=== PATIENT | male | born 1935 | race Caucasian/White ===

== ENCOUNTER → 2020-02-03 14:39 | Outpatient (BNVA) | payer MEDICARE, SELFPAY | PROVIDERS: PCP Family Medicine; Referring Provider Family Medicine; Visit Provider Internal Medicine | DX: I48.0 Paroxysmal atrial fibrillation (principal); I34.0 Nonrheumatic mitral (valve) insufficiency; I34.1 Nonrheumatic mitral (valve) prolapse; I44.0 Atrioventricular block, first degree; Z79.899 Other long term (current) drug therapy | CPT/HCPCS: 99214 ==

== ENCOUNTER 2020-08-03 10:04 | Outpatient (REF) | payer MEDICARE, SELFPAY ==
[2020-08-03 15:00] LABS: Alanine Aminotransferase 12 U/L (0-40); Albumin Level 4.1 g/dL (3.5-5.0); Alkaline Phosphatase 78 U/L (39-117); Anion Gap 17 (12-20); Aspartate Amino Transferase 18 U/L (5-37); Bilirubin Total 1.2 mg/dL (0.0-1.0); Blood Urea Nitrogen 24 mg/dL (9-16); Carbon Dioxide 25 mmol/L (22-29); Chloride 104 mmol/L (96-108); Cholesterol 187 mg/dL; Estimated Glomerular Filt Rate 56; Glucose Fasting 90 mg/dL (60-99); HDL Cholesterol 48 mg/dL; LDL Cholesterol Calculated 118 mg/dl; Potassium 5.1 mmol/L (3.3-5.1); Sodium 141 mmol/L (135-145); TSH reflex Free T4 3.15 uIU/mL (0.32-4.0); Total Protein 6.9 g/dL (6.5-8.0); Triglycerides 109 mg/dL
== END 2020-08-03 10:05 | disposition home or self-care (01) ==
LOC: HO.WFDLDS 10:04
PROVIDERS: Visit Provider Family Medicine
DX: Z00.00 Encounter for general adult medical examination without abnormal findings (principal); R03.0 Elevated blood-pressure reading, without diagnosis of hypertension; I10 Essential (primary) hypertension; E78.5 Hyperlipidemia, unspecified
CPT/HCPCS: 36415; 80053; 80061; 84443

== ENCOUNTER 2020-08-17 10:25 | Outpatient (REF) | payer MEDICARE, SELFPAY ==
--- NOTE | ~2020-08-17 | XR_ITS ---
EXAMINATION: XR FEMUR, RIGHT CLINICAL INFORMATION: Right thigh pain. COMPARISON: None. TECHNIQUE: AP and lateral views of the right femur were obtained. FINDINGS: Severe right hip joint space narrowing with superior bony remodeling. Prominent subchondral sclerosis and subchondral cystic change as well as marginal osteophytes. No fracture or dislocation. No distal femoral lytic or blastic osseous lesion. Partially visualized right knee arthroplasty without evidence of hardware complication. Atherosclerotic calcifications. XR/XR femur RT 2V IMPRESSION: Severe right hip osteoarthritis.
== END 2020-08-17 10:26 | disposition home or self-care (01) ==
LOC: HO.XRAY 10:25
PROVIDERS: PCP Family Medicine; Visit Provider Family Medicine
DX: M79.651 Pain in right thigh (principal)
CPT/HCPCS: 73552

== ENCOUNTER → 2020-08-24 14:15 | Outpatient (BNVA) | payer MEDICARE, SELFPAY | PROVIDERS: PCP Family Medicine; Visit Provider Physician Assistant | DX: M79.651 Pain in right thigh (principal); M16.11 Unilateral primary osteoarthritis, right hip | CPT/HCPCS: 99202 ==

== ENCOUNTER → 2020-09-14 12:48 | Outpatient (REF) | payer MEDICARE, SELFPAY ==
--- NOTE | 2020-09-14 12:55 | CA_ITS ---
Transthoracic Echocardiogram Patient (Last, First, Middle): Collin Larsen J Gender: Male Date of : 1935 Age: 84 Procedure Date: 09/14/2020 Procedure Type: Transthoracic Echocardiogram Location: OP Height: 177.8 cm Weight: 83.92 kg BSA: 2.02 m2 Heart Rate: bpm BP: 140 / 80 mmHg Neighborhood Planner: YOHANA Referring MD: Jairon Hudson MD Order Processor: Yovanny Ferguson MD Symptoms: I34.0 - Nonrheumatic mitral (valve) insufficiency Study Quality: Technically Difficult ECG Rhythm: Sinus Conclusions: - 1. Normal LV systolic function with grade 3 diastolic dysfunction 2. Mildly dilated left atrium 3. Mild mitral regurgitation 4. Normal RV systolic pressure 5. No gross pericardial effusion Findings Left Ventricle Normal left ventricular size, thickness, and systolic function. The visually estimated ejection fraction is between 60-65%. Spectral Doppler is indicative of a restrictive filling pattern. Elevated filling pressures. Right Ventricle Normal right ventricular cavity size and systolic function. Atria The left atrium is mildly dilated. There is lipomatous hypertrophy of the interatrial septum. There is no evidence of interatrial shunt. The right atrium is likely dilated. Aortic Valve There is mild calcification of the aortic valve. There is mild thickening of the aortic valve. There is no aortic valve stenosis. There is mild aortic valve regurgitation. Mitral Valve There is moderate anterior and mild posterior mitral leaflet thickening. There is mild mitral valve regurgitation. There is no mitral valve stenosis. Pulmonic Valve The pulmonic valve was not well visualized. Tricuspid Valve Likely normal tricuspid valve structure and function. There is mild tricuspid valve regurgitation. The right ventricular systolic pressure is normal. The right ventricular systolic pressure is 31 mmHg. Normal right atrial pressure. There is no evidence of pulmonary hypertension. Great Vessels All visible segments of the aorta are normal in size. The pulmonary artery was not well visualized. Venous The inferior vena cava is normal in size and collapses greater than 50% with inspiration. Pericardium/Pleural There is no evidence of pericardial effusion. Prior Study Comparison Changes noted compared to prior study dated: 06/24/2019. Mitral regurgitation appears to be mild on this study. LV diastolic dysfunction appears to be grade 3. Measurements M-Mode Liner Measurements Normals - Women/Men AOV Cusps: 1.30 1.5-2.6 cm/m2 2D Linear Measurements IVSd: 1.00 0.6-0.9/0.6-1.0 cm LVIDd: 5.33 3.9-5.3/4.2-5.9 cm LVIDd Index: 2.64 2.4-3.2/2.2-3.1 cm/m2 LVIDs: 3.69 2.0-3.6 cm LVPWd: 0.95 0.7-1.1 cm Ao Root: 3.40 2.1-3.5 cm LA Diam: 3.30 2.7-3.8/3.0-4.0 cm LAIDs Index: 1.63 1.5-2.3 cm/m2 LV Mass: 244.12 67-162/88-224 g LV Mass Index: 120.85 43-95/49-115 g/m2 LVOT Diam: 2.30 3.0+(-)1.3 cm 2D Systolic Function EF 4C: 62.40 >55% EF 2C: 47.00 >55% EF BiP: 55.20 >55% Mitral Valve MV Pk E: 1.25 MV PK A: 0.63 MV Decel Time: 107.00 E/A: 2.00 E'Lateral: 6.16 E'Medial: 4.87 E/E' Med: 25.70 E/E' Lat: 20.30 PHT: 31.00 MVA PHT: 7.10 Decel Barbour: 11.65 Aortic Valve AoV Pk Cesar: 1.35 AoV Mn Cesar: 0.96 AoV VTI: 0.33 AoV Pk Grad: 7.00 Aov Mn Grad: 4.00 ITALIA Cont.VTI: 2.64 AI Pk Cesar: 3.83 AI Barbour: 1.75 LVOT LVOT Pk Cesar: 0.84 LVOT Mn Cesar: 0.60 LVOT VTI: 0.21 LVOT Pk Grad: 3.00 LVOT Mn Grad: 2.00 LVOT Diam: 2.30 LVOT Area: 4.15 Diastolic Function MV Pk E: 1.25 MV Pk A: 0.63 E/A: 2.00 E'Medial: 4.87 E/E' Med: 25.70 E' Laterial: 6.16 E/E' Lat: 20.30 Tricuspid Valve TR Pk Cesar: 2.46 TR Pk Grad: 28.00 RA Press: 3.00 RVSP: 31.00 Great Vessels Aorta Ao Root-2D: 3.40 2.0-3.7 cm Ao Asc: 2.80 2.1-3.4 cm Ao Arch: 2.80 Pulmonary Valve PV Pk Cesar: 0.84 Peak PV Grad: 3.00 Updated in Other Vendor System with Status of Final Yovanny Ferguson MD electronically signed on 09/15/2020 4:02:15 PM with status of Final
--- NOTE | 2020-09-14 12:55 | ECG_ITS ---
Hook-up date: 2020-09-14 14:05:00 Duration: 42:32:00 Test Indications: PAF Medications: 05795 QRS complexes 388 Ventricular ectopics which represent <1 % of total QRS comp. 136 Supraventricular ectopics which represent <1 % of total QRS comp. * Paced QRS complexs which represent % of total QRS comp. VENTRICULAR ECTOPY 380 Isolated 3 Bigeminal Cycles 4 Couplets 0 Runs 0 Beats in Runs * Beats LONGEST at * BPM at :: -- * Beats FASTEST at * BPM at :: -- SUPRAVENTRICULAR ECTOPY 132 Isolated 2 Couplets 0 Runs 0 Beats in Runs * Beats LONGEST at * BPM at :: -- * Beats FASTEST at * BPM at :: -- HEART RATES 44 MIN at 15:04:39 2020-09-14 63 AVG 143 MAX at 12:01:13 2020-09-15 LONGEST RR 3.2720 secs at 15:05:41 2020-09-14 S-T LEVELS Channel 1 - 128 mm at 14:05:00 2020-09-14 - 128 mm at 14:05:00 2020-09-14 Channel 2 - 128 mm at 14:05:00 2020-09-14 - 128 mm at 14:05:00 2020-09-14 Channel 3 - 128 mm at 03:32:41 -- - 128 mm at 03:32:41 Underlying rhythm is sinus with 1st degree HB; Average rate 63/min; range 44-143/min; Tachycardia at 143/min likely sinus tachycardia, as it is regular; Second degree wenckebach type heart block ; Longest pause 3.3sec; Rare PVCs; Possible short atrial tachycardia episodes; Patient did not report any symptoms in the diary Referred By: Phong Cordero Overread By: PHONG CORDERO
== END ==
LOC: HO.CARD 12:48
PROVIDERS: Visit Provider Internal Medicine
DX: I48.0 Paroxysmal atrial fibrillation (principal); I34.0 Nonrheumatic mitral (valve) insufficiency
CPT/HCPCS: 93225; 93226; 93306

== ENCOUNTER → 2020-10-12 14:38 | Outpatient (BNVA) | payer MEDICARE, SELFPAY | PROVIDERS: PCP Family Medicine; Referring Provider Family Medicine; Visit Provider Internal Medicine | DX: I34.0 Nonrheumatic mitral (valve) insufficiency (principal); I44.30 Unspecified atrioventricular block; I48.0 Paroxysmal atrial fibrillation | CPT/HCPCS: 93005; 99212 ==

== ENCOUNTER → 2020-11-08 15:14 | Outpatient (REF) | payer MEDICARE, SELFPAY ==
--- NOTE | 2020-11-09 14:30 | ECG_ITS ---
Hook-up date: 2020-11-08 15:21:00 Duration: 46:02:00 Test Indications: atrioventicular block Medications: 59473 QRS complexes 338 Ventricular ectopics which represent <1 % of total QRS comp. 24851 Supraventricular ectopics which represent 11 % of total QRS comp. * Paced QRS complexs which represent % of total QRS comp. VENTRICULAR ECTOPY 322 Isolated 9 Bigeminal Cycles 8 Couplets 0 Runs 0 Beats in Runs * Beats LONGEST at * BPM at :: -- * Beats FASTEST at * BPM at :: -- SUPRAVENTRICULAR ECTOPY 131 Isolated 11 Couplets 55 Runs 28903 Beats in Runs 1283 Beats LONGEST at 155 BPM at 10:27:52 2020-11-09 483 Beats FASTEST at 160 BPM at 10:01:32 2020-11-09 HEART RATES 50 MIN at 02:55:37 2020-11-09 68 AVG 165 MAX at 10:53:39 2020-11-09 LONGEST RR 2.1280 secs at 08:24:20 2020-11-09 S-T LEVELS Channel 1 - 128 mm at 15:21:00 2020-11-08 - 128 mm at 15:21:00 2020-11-08 Channel 2 - 128 mm at 15:21:00 2020-11-08 - 128 mm at 15:21:00 2020-11-08 Channel 3 - 128 mm at 03:44:01 -- - 128 mm at 03:44:01 Underlying rhythm is sinus with prolonged TX; Average ventricular rate 68/min; Longest pause 2.12 sec at 08:24hrs; Narrow complex tachycardia episodes probable atrial tachycardia; cannot exclude atrial fibrillation; longest run 1283 beats at 155/min; Occasional Premature ventricular complexes ; Patient did not report any symptoms in the diary Referred By: Phong Cordero Overread By: PHONG CORDERO
== END ==
LOC: HO.CARD 15:14
PROVIDERS: PCP Family Medicine; Referring Provider Family Medicine; Visit Provider Internal Medicine
DX: I49.3 Ventricular premature depolarization (principal); R94.31 Abnormal electrocardiogram [ECG] [EKG]
CPT/HCPCS: 93226

== ENCOUNTER 2020-12-07 14:14 | Outpatient (REF) | payer MEDICARE, SELFPAY ==
[2020-12-07 15:27] LABS: Hematocrit 41.7 % (42-52); Hemoglobin 13.5 g/dl (14.0-18.0); Mean Corpuscular HGB Conc 32.4 g/dl (31.0-36.0); Mean Corpuscular Hemoglobin 31.9 pg (27.0-33.0); Mean Corpuscular Volume 98.6 fL (80-98); Mean Platelet Volume 9.6 fL (9.4-12.4); Platelet Count 284 X10*3/uL (160-400); Red Blood Count 4.23 X10*6/uL (4.60-5.80); Red Cell Distribution Width 13.2 % (11.0-16.0); White Blood Count 8.4 X10*3/uL (4.8-10.8)
[2020-12-07 15:34] LABS: Prothrombin Time 11.1 SEC (9.9-13.0)
[2020-12-07 15:47] LABS: Anion Gap 13 (12-20); Blood Urea Nitrogen 34 mg/dL (9-16); Calcium 9.3 mg/dL (8.4-10.2); Carbon Dioxide 30 mmol/L (22-29); Chloride 103 mmol/L (96-108); Estimated Glomerular Filt Rate 42; Glucose Random 96 mg/dL (60-115); Potassium 4.7 mmol/L (3.3-5.1); Sodium 141 mmol/L (135-145)
== END 2020-12-07 14:15 | disposition home or self-care (01) ==
LOC: HO.LAB 14:14
PROVIDERS: PCP Family Medicine; Referring Provider Family Medicine; Visit Provider Internal Medicine
DX: I34.0 Nonrheumatic mitral (valve) insufficiency (principal); I44.30 Unspecified atrioventricular block; I48.0 Paroxysmal atrial fibrillation
CPT/HCPCS: 36415; 80048; 85027; 85610; 99212

== ENCOUNTER 2021-01-25 10:59 | Outpatient (REF) | payer MEDICARE, SELFPAY ==
[2021-01-25 14:22] LABS: Anion Gap 14 (12-20); Blood Urea Nitrogen 24 mg/dL (9-16); Carbon Dioxide 28 mmol/L (22-29); Chloride 102 mmol/L (96-108); Estimated Glomerular Filt Rate 53; Glucose Random 130 mg/dL (60-115); Potassium 4.3 mmol/L (3.3-5.1); Sodium 140 mmol/L (135-145)
== END 2021-01-25 11:00 | disposition home or self-care (01) ==
LOC: HO.WFDLDS 10:59
PROVIDERS: Visit Provider Family Medicine
DX: Z00.00 Encounter for general adult medical examination without abnormal findings (principal)
CPT/HCPCS: 36415; 80048

== ENCOUNTER → 2021-06-27 11:23 | Outpatient (REF) | payer MEDICARE, SELFPAY ==
--- NOTE | 2021-06-27 11:27 | HM_ITS ---
Conclusion: 1. Patient was monitored for total period of 4 days and 2 hours 2. Baseline was normal sinus rhythm with average heart rate 66 beats per minute 3. One pause of 2.62 seconds noted on 2nd day at 10:08 post PVC 4. Frequent short runs of supraventricular ectopy noted could represent atrial fibrillation, longest episode 33 minutes and 16 seconds 5. Baseline intraventricular conduction delay noted 6. Total of 10,163 PACs noted, accounting for 2.62% total burden account for frequent PACs 7. No patient reported events MTDD
== END ==
LOC: HO.CARD 11:23
PROVIDERS: PCP Family Medicine; Visit Provider Internal Medicine
DX: I48.0 Paroxysmal atrial fibrillation (principal)
CPT/HCPCS: 93242

== ENCOUNTER → 2021-07-05 14:39 | Outpatient (BNVA) | payer MEDICARE, SELFPAY | PROVIDERS: PCP Family Medicine; Referring Provider Family Medicine; Visit Provider Nurse Practitioner Family | DX: I47.1 Supraventricular tachycardia (principal); I48.0 Paroxysmal atrial fibrillation; I44.0 Atrioventricular block, first degree; I10 Essential (primary) hypertension; I34.0 Nonrheumatic mitral (valve) insufficiency | CPT/HCPCS: 93005; 99212 ==

== ENCOUNTER → 2021-10-19 09:34 | Outpatient (BNVA) | payer MEDICARE, SELFPAY | PROVIDERS: PCP Family Medicine; Visit Provider Anesthesiology | DX: M16.11 Unilateral primary osteoarthritis, right hip (principal) | CPT/HCPCS: 99202 ==

== ENCOUNTER 2021-11-22 06:12 | Outpatient (REF) | payer MEDICARE, SELFPAY ==
--- NOTE | ~2021-11-22 | FL_ITS ---
EXAMINATION: XR FLUOROSCOPY WITH IMAGES CLINICAL INFORMATION: Right hip steroid injection. Primary osteoarthritis of the right hip COMPARISON: None. TECHNIQUE: Fluoroscopy performed by Dr. Jass Ford. Fluoroscopy time: 0.3 minutes. Cumulative Dose: 15.4 mGy. DAP: 4.2 Gy-cm2. Images: 2. FINDINGS: Radiopaque needle projects over the right hip with injection of contrast into the joint space. FL/FL guidance in treatment room IMPRESSION: Fluoroscopic guidance for right hip injection. Please refer to procedural report for further information.
== END 2021-11-22 06:13 | disposition home or self-care (01) ==
LOC: HO.RADIR 06:12
PROVIDERS: Visit Provider Anesthesiology
DX: M16.11 Unilateral primary osteoarthritis, right hip (principal)
CPT/HCPCS: 20610; J3300

== ENCOUNTER 2021-12-13 14:58 | Inpatient (IN) | payer MEDICARE, SELFPAY ==
--- NOTE | 2021-12-13 | ECG_ITS ---
Test Reason : rythmn change Blood Pressure : / mmHG Vent. Rate : 078 BPM Atrial Rate : 078 BPM P-R Int : 310 ms QRS Dur : 120 ms QT Int : 392 ms P-R-T Axes : 054 -24 054 degrees QTc Int : 446 ms Sinus rhythm with 1st degree A-V block Possible Anterior infarct (cited on or before 13-DEC-2021) Abnormal ECG When compared with ECG of 13-DEC-2021 15:24, Vent. rate has decreased BY 61 BPM Referred By: Guille Mckeon Electronically Signed By:ANIBAL RUSSELL
--- NOTE | ~2021-12-13 | FL_ITS ---
EXAMINATION: XR FLUOROSCOPY WITH IMAGES CLINICAL INFORMATION: Pacemaker placement COMPARISON: Previous chest x-ray 12/13/2021 TECHNIQUE: Fluoroscopy performed by Demi. Fluoroscopy time: 6.6 minutes. Cumulative Dose: 84 mGy. DAP: 23 Gy-cm2. Images: 3. FINDINGS: Initial left chest venogram demonstrates patent left subclavian and innominate veins. Subsequent images demonstrate a dual-chamber pacemaker in satisfactory position. FL/FL guidance in OR IMPRESSION: Fluoroscopy guidance for dual chamber pacemaker placement.
--- NOTE | ~2021-12-13 | XR_ITS ---
EXAMINATION: XR CHEST CLINICAL INFORMATION: Pacemaker placement COMPARISON: 12/13/2021 TECHNIQUE: Frontal view of the chest was obtained. FINDINGS: Since the prior study, a left chest wall dual-lead pacemaker has been placed with one tip in the right atria the other near the right ventricular apex. No pneumothorax is seen. Heart size normal and the lungs are clear. Severe degenerative changes and rotator cuff disease noted in the right shoulder with mild changes on the left. XR/XR chest 1V IMPRESSION: Normal appearance of new left chest wall pacemaker without complication
--- NOTE | ~2021-12-13 | XR_ITS ---
EXAMINATION: XR CHEST CLINICAL INFORMATION: Follow-up pacer leads COMPARISON: X-ray 12/15/2021 TECHNIQUE: 2 Frontal view of the chest was obtained. FINDINGS: Left chest wall dual-lead pacemaker redemonstrated, with one pacer lead projected over the right atrium, and the second lead projected over the right ventricle. Cardiac monitoring leads overlie the chest. Stable cardiomediastinal silhouette. Aortic arch calcification. No pulmonary edema or focal consolidation. No pneumothorax is seen. XR/XR chest 1V IMPRESSION: Dual-lead pacemaker, with lead positioning as described above. No pneumothorax.
--- NOTE | ~2021-12-13 | XR_ITS ---
EXAMINATION: XR CHEST CLINICAL INFORMATION: Arrhythmia COMPARISON: None TECHNIQUE: Frontal view of the chest was obtained. FINDINGS: Suboptimal lordotic view. There is a airspace opacity in the left upper lung overlying the scapula which may be exaggerated due to portable lordotic technique. I would recommend repeating the study as a nonlordotic well centered PA and lateral film. Heart and pulmonary vessels are normal. No evidence for congestive failure. There is degenerative change in the left shoulder. XR/XR chest 1V IMPRESSION: No congestive change. Query left upper lobe airspace opacity versus an appearance based on lordotic technique. Please repeat the examination as a well centered upright nonlordotic PA and lateral.
--- NOTE | 2021-12-13 15:26 | ECG_ITS ---
Test Reason : PALPITATIONS Blood Pressure : / mmHG Vent. Rate : 139 BPM Atrial Rate : 000 BPM P-R Int : 000 ms QRS Dur : 110 ms QT Int : 328 ms P-R-T Axes : 000 -15 073 degrees QTc Int : 499 ms Supraventricular tachycardia Anterior infarct , age undetermined Abnormal ECG No previous ECGs available Referred By: Generic ED Physician Electronically Signed By:ANIBAL RUSSELL
[2021-12-13 15:27] VITALS: BP 97/59; PULSE 135; RESP 19; TEMP 36.7; O2SAT 95; BMI 27.2
[2021-12-13 15:46] LABS: MANUAL DIFF FLAG NO
[2021-12-13 15:50] LABS: Basophils Absolute Auto 0.1 X10*3/uL (0.0-0.2); Basophils Percent Auto 0.8 % (0-2); Eosinophils Absolute Auto 0.2 X10*3/uL (0.0-0.4); Hemoglobin 13.3 g/dl (14.0-18.0); Imm Gran Abs Auto 0.02 X10*3/uL (0.00-0.03); Imm Gran Pct Auto 0.3 % (0.0-0.4); Mean Corpuscular HGB Conc 33.3 g/dl (31.0-36.0); Mean Corpuscular Hemoglobin 32.4 pg (27.0-33.0); Mean Corpuscular Volume 97.3 fL (80.0-98.0); Mean Platelet Volume 9.4 fL (9.4-12.4); Monocytes Absolute Auto 0.5 X10*3/uL (0.1-1.2); Monocytes Percent Auto 6.8 % (2-11); Neutrophils Absolute Auto 6.1 x10*3/uL (2.0-8.3); Neutrophils Percent Auto 77.1 % (45-73); Platelet Count 236 X10*3/uL (160-400); Red Blood Count 4.11 X10*6/uL (4.60-5.80); White Blood Count 7.9 X10*3/uL (4.8-10.8)
[2021-12-13 16:01] LABS: Anion Gap 16 (12-20); Blood Urea Nitrogen 25 mg/dL (9-16); Calcium 8.7 mg/dL (8.4-10.2); Carbon Dioxide 27 mmol/L (22-29); Chloride 101 mmol/L (96-108); Creatinine Clr Calc Pharmacy 42.3; Estimated Glomerular Filt Rate 54; Glucose Random 103 mg/dL (60-115); Potassium 4.6 mmol/L (3.3-5.1); Sodium 139 mmol/L (135-145)
--- NOTE | 2021-12-13 16:01 | ED_ITS ---
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 Per patient's daughter patient used to be on beta-seb before which was stopped as his heart rate dropped to 30s plan to place a pacemaker on arrival monitor and storage bin tender showing heart rate of 70s intermittently going to 130s lasting only for few minutes patient is symptomatic no shortness of breath no leg swelling Related Data Home Medications Medication Instructions Recorded Confirmed cyanocobalamin (vitamin B-12) 1,000 mcg PO DAILY 02/03/20 12/13/21 1,000 mcg capsule diclofenac sodium 1 % topical gel 4 g topical BID PRN pain 12/13/21 12/13/21 (Voltaren Arthritis Pain) Previous Rx's Medication Instructions Recorded apixaban 2.5 mg tablet (Eliquis) 2.5 mg PO BID 90 days #180 tabs 03/28/21 tamsulosin 0.4 mg capsule 0.4 mg PO DAILY #90 caps 07/25/21 citalopram 20 mg tablet (Celexa) 20 mg PO DAILY 90 days #90 tabs 09/29/21 hydrochlorothiazide 25 mg tablet 25 mg PO DAILY 30 days #30 tabs 09/29/21 Allergies Allergy/AdvReac Type Severity Reaction Status Date / Time No Known Allergies Allergy Verified 12/13/21 15:27 Review of Systems Review of Systems: Yes all other systems are reviewed and are negative [facility] Past Medical History Medical History Essential hypertension First degree heart block Hyperlipidemia Non-rheumatic mitral regurgitation PAF (paroxysmal atrial fibrillation) Surgical History History of total knee replacement Family History Family History Father No problems noted. Mother No problems noted. Social History Social History Housing: Assisted Living Facility Alcohol intake: current Alcohol intake frequency: a few times a month Patient Tobacco Use Status: Former Tobacco user e-Cigarette/Vaping Use: Never Used Second Hand Smoke Exposure: No Use of substances other than those prescribed or required for medical reasons: No Advance Directives: Yes Advance Directives Information Provided: No Advance Directives on File: No service: Yes Current occupational status: retired Current occupation: rt hand /retired Cognitive needs: Yes (walker/cane) Hearing needs: No Vision needs: Yes (glasses) Physical Exam Vital Signs: Vital Signs: Last Vital Signs Temp 98.0 F 12/13/21 15:27 Pulse 57 12/13/21 18:16 Resp 16 12/13/21 18:16 BP 110/57 L 12/13/21 18:16 Pulse Ox 97 12/13/21 18:16 O2 Del Method 12/13/21 18:16 BMI result Body Mass Index 27.2 Appearance: Alert. Oriented X3. No acute distress. Eyes: PERRLA, No Nystagmus ENT: Pharynx normal. Oral Mucosa moist Neck: Normal inspection. Neck supple. CVS: Normal heart rate and rhythm. Pulses normal. Respiratory: No respiratory distress. Equal air entry bilateral, no wheezing/rales/rhonchi Abdomen: Soft and nontender. Bowel sounds are present, no mass palpable, no CVA tenderness Skin: Skin warm and dry. Normal skin color. Normal skin turgor. Extremities: No lower extremity edema. No calf tenderness Neuro: Oriented X 3. No motor deficit. No sensory deficit.No cerebellar signs , cranial nerves II-XII intact MDM - Arrhythmia/Palpitations MDM Narrative Medical decision making narrative: Patient with paroxysmal AFib with increased ventricular rate up to 140 patient is symptomatic although. Case discussed with Dr. Hudson patient's bioprocessing manufacturing technician advised to start patient on amiodarone and low-dose beta-seb will see him will review in a.m. for future management including the pacemaker Lab Data Attestation: I reviewed the patient's lab results. Result diagrams: 12/13/21 15:40 12/13/21 15:40 Labs: Lab Results 12/13/21 12/13/21 12/13/21 Range/Units 15:40 15:40 15:40 WBC 7.9 (4.8-10.8) X10*3/uL RBC 4.11 L (4.60-5.80) X10*6/uL Hgb 13.3 L (14.0-18.0) g/dl Hct 40.0 L (42.0-52.0) % MCV 97.3 (80.0-98.0) fL MCH 32.4 (27.0-33.0) pg MCHC 33.3 (31.0-36.0) g/dl RDW 13.0 (11.0-16.0) % Plt Count 236 (160-400) X10*3/uL MPV 9.4 (9.4-12.4) fL Immature Gran % (Auto) 0.3 (0.0-0.4) % Neut % (Auto) 77.1 H (45-73) % Lymph % (Auto) 13.0 L (20-40) % Wright % (Auto) 6.8 (2-11) % Eos % (Auto) 2.0 (0-4) % Baso % (Auto) 0.8 (0-2) % Lymph # (Auto) 1.0 L (1.2-4.9) X10*3/uL Wright # (Auto) 0.5 (0.1-1.2) X10*3/uL Eos # (Auto) 0.2 (0.0-0.4) X10*3/uL Baso # (Auto) 0.1 (0.0-0.2) X10*3/uL Abs Immat Gran (auto) 0.02 (0.00-0.03) X10*3/uL Absolute Neuts (auto) 6.1 (2.0-8.3) x10*3/uL Absolute Nucleated RBC 0.000 (0.0-0.012) X10*3/uL Nucleated RBC % (auto) 0.0 (0.0-0.2) /100WBC PT (10.0-13.1) SEC INR (0.9-1.1) Sodium 139 (135-145) mmol/L Potassium 4.6 (3.3-5.1) mmol/L Chloride 101 (96-108) mmol/L Carbon Dioxide 27 (22-29) mmol/L Anion Gap 16 (12-20) BUN 25 H (9-16) mg/dL Creatinine 1.27 (0.5-1.4) mg/dL Estim Creat Clear Calc 42.3 Estimated GFR 54 Random Glucose 103 (60-115) mg/dL Calcium 8.7 (8.4-10.2) mg/dL Magnesium 2.2 (1.6-2.6) mg/dL Troponin I High Sens 10.0 (<3.5-35.0) ng/L 12/13/21 Range/Units 16:01 WBC (4.8-10.8) X10*3/uL RBC (4.60-5.80) X10*6/uL Hgb (14.0-18.0) g/dl Hct (42.0-52.0) % MCV (80.0-98.0) fL MCH (27.0-33.0) pg MCHC (31.0-36.0) g/dl RDW (11.0-16.0) % Plt Count (160-400) X10*3/uL MPV (9.4-12.4) fL Immature Gran % (Auto) (0.0-0.4) % Neut % (Auto) (45-73) % Lymph % (Auto) (20-40) % Wright % (Auto) (2-11) % Eos % (Auto) (0-4) % Baso % (Auto) (0-2) % Lymph # (Auto) (1.2-4.9) X10*3/uL Wright # (Auto) (0.1-1.2) X10*3/uL Eos # (Auto) (0.0-0.4) X10*3/uL Baso # (Auto) (0.0-0.2) X10*3/uL Abs Immat Gran (auto) (0.00-0.03) X10*3/uL Absolute Neuts (auto) (2.0-8.3) x10*3/uL Absolute Nucleated RBC (0.0-0.012) X10*3/uL Nucleated RBC % (auto) (0.0-0.2) /100WBC PT 12.9 (10.0-13.1) SEC INR 1.1 (0.9-1.1) Sodium (135-145) mmol/L Potassium (3.3-5.1) mmol/L Chloride (96-108) mmol/L Carbon Dioxide (22-29) mmol/L Anion Gap (12-20) BUN (9-16) mg/dL Creatinine (0.5-1.4) mg/dL Estim Creat Clear Calc Estimated GFR Random Glucose (60-115) mg/dL Calcium (8.4-10.2) mg/dL Magnesium (1.6-2.6) mg/dL Troponin I High Sens (<3.5-35.0) ng/L ECG Data Attestation: I personally reviewed and interpreted this ECG as follows: Interpretation: Sinus rhythm with first-degree AV block heart rate 75 beats per minute left axis deviation PACs no acute ST T wave changes no acute ischemia Discharge Plan Discharge Clinical Impression: PAF (paroxysmal atrial fibrillation) Patient Disposition: Admitted As Inpatient
[2021-12-13 16:03] VITALS: BP 124/65; PULSE 131; RESP 16; O2SAT 96
[2021-12-13 16:04] VITALS: BP 110/68; PULSE 79; RESP 14; O2SAT 96
--- NOTE | 2021-12-13 16:06 | PC.NURSE ---
pt changed into ED room 6 - HR 131, 20G IV placed in LAC - completing triage questions pt HR changed to a NSR at 79 BPM.... documentation completed and pt HR went back into 130s
[2021-12-13 16:13] LABS: INTERNATIONAL NORM RATIO 1.1 (0.9-1.1); Prothrombin Time 12.9 SEC (10.0-13.1)
--- NOTE | 2021-12-13 16:36 | ECG_ITS ---
Test Reason : at fib Blood Pressure : / mmHG Vent. Rate : 075 BPM Atrial Rate : 075 BPM P-R Int : 332 ms QRS Dur : 116 ms QT Int : 408 ms P-R-T Axes : 014 -30 063 degrees QTc Int : 455 ms Sinus rhythm with 1st degree A-V block with occasional Premature ventricular complexes and Premature atrial complexes Left axis deviation Possible Anterior infarct (cited on or before 13-DEC-2021) Abnormal ECG When compared with ECG of 13-DEC-2021 16:21, Premature ventricular complexes are now Present Premature atrial complexes are now Present Referred By: Guille Mckeon Electronically Signed By:ANIBAL RUSSELL
[2021-12-13 17:02] LABS: Magnesium 2.2 mg/dL (1.6-2.6)
[2021-12-13] MEDS: Amiodarone HCL 200 MG TABLET 400 MG PO (17:06)
[2021-12-13] MEDS: Metoprolol Tartrate 25 MG TABLET PO (17:06)
[2021-12-13 18:16] VITALS: BP 110/57; PULSE 57; RESP 16; O2SAT 97
--- NOTE | 2021-12-13 18:58 | PHA.MEDREC ---
Pharmacy Consult ? Medication Reconciliation Pharmacy has completed the medication reconciliation.
--- NOTE | 2021-12-13 19:26 | P.HPHOSP_ITS ---
History of Present Illness Date of Service: 12/13/21 Chief Complaint: Tachycardia 86-year-old male with past history of hypertension, hyperlipidemia nonrheumatic mitral regurgitation, paroxysmal AFib on Eliquis, history of bradycardia/Wenckebach heart block-off of beta-seb; presented to the hospital today with a chief complaint of tachycardia. Patient initially went to the cardiology clinic for routine follow-up visit; noted to have AFib with rapid ventricular rate; subsequently patient was sent to the hospital for further evaluation. Patient denies any symptoms-denies any chest pain palpitations lightheadedness dizziness, fever chills cough, GI symptoms. Review of all other systems is negative except mentioned above ER course: Per ER team patient asymptomatic, exam benign; discussed with cardiology who suggested to have the patient on amiodarone 400 mg b.i.d. and metoprolol told him once b.i.d.. Patient on presentation to the ER noted to be in rapid AFib with heart rate in 130s. received diltiazem IV x1. Admitted to the hospital for further management [facility] Medical History Essential hypertension First degree heart block Hyperlipidemia Non-rheumatic mitral regurgitation PAF (paroxysmal atrial fibrillation) Family History Father No problems noted. Mother No problems noted. Surgical History History of total knee replacement Social History Household Members: Caregiver and Other Housing: Assisted Living Facility Do you presently have visiting nurse or other home services: Yes Alcohol intake: current Alcohol intake frequency: a few times a month Patient Tobacco Use Status: Former Tobacco user Tobacco use type: Cigarette e-Cigarette/Vaping Use: Never Used Second Hand Smoke Exposure: No service: Yes Current occupational status: retired Current occupation: rt hand /retired Cognitive needs: Yes (walker/cane) Hearing needs: No Vision needs: Yes (glasses) Meds Allergies Allergy/AdvReac Type Severity Reaction Status Date / Time No Known Allergies Allergy Verified 12/13/21 15:27 Active Medications: Current Medications Acetaminophen (Acetaminophen 325 Mg Tablet) 650 mg PO Q6H PRN PRN Reason: Pain, Mild (Pain Scale 1-3) Apixaban (Apixaban 2.5 Mg Tablet) 2.5 mg PO BID [facility] Cyanocobalamin (Cyanocobalamin (Vitamin B-12) 1,000 Mcg Tablet) 1,000 mcg PO DAILY [facility] Hydrochlorothiazide (Hydrochlorothiazide 25 Mg Tablet) 25 mg PO DAILY [facility]; Protocol Melatonin (Melatonin 3 Mg Tablet) 6 mg PO BEDTIME PRN PRN Reason: Insomnia Non-Formulary Medication (Citalopram [Celexa]) 20 mg PO DAILY [facility] Pharmacy Consult (Consult Rx Perform Med Rec) 1 each MISCELLANE ONCE PRN PRN Reason: Consult order Senna (Sennosides 8.6 Mg Tablet) 17.2 mg PO BEDTIME PRN PRN Reason: Constipation Sodium Chloride (0.9 % Sodium Chloride Flush 3 Ml Syringe) 3 ml IVFLUSH QSHIFT [facility] Tamsulosin HCl (Tamsulosin Hcl 0.4 Mg Capsule) 0.4 mg PO DAILY [facility] Home Medications Medication Instructions Recorded Confirmed Last Taken Type cyanocobalamin (vitamin B-12) 1,000 mcg PO DAILY 02/03/20 12/13/21 12/13/21 History 1,000 mcg capsule diclofenac sodium 1 % topical gel 4 g topical BID PRN pain 12/13/21 12/13/21 Unknown History (Voltaren Arthritis Pain) Physical Exam Vital Signs and Narrative: Vital Signs: Last Vital Signs Temp 98.0 F 12/13/21 15:27 Pulse 57 12/13/21 18:16 Resp 16 12/13/21 18:16 BP 110/57 L 12/13/21 18:16 Pulse Ox 97 12/13/21 18:16 O2 Del Method 12/13/21 18:16 BMI result Body Mass Index 27.2 Gen: Appears be in no acute distress HEENT: NCAT, Moist mucosa. Pulmonary: Vesicular breath sounds, fair air entry CVS: Normal S1-S2 Abdomen: BS+, Soft, Nontender Extremities: Warm well perfused Neuro: Alert and awake. Results Labs CBC and Chem 7: 12/16/21 06:12 12/16/21 06:12 Labs: Laboratory Results - last 24 hr 12/13/21 12/13/21 12/13/21 15:40 15:40 16:01 MCV 97.3 MCH 32.4 MCHC 33.3 RDW 13.0 Plt Count 236 MPV 9.4 Immature Gran % (Auto) 0.3 Neut % (Auto) 77.1 H Lymph % (Auto) 13.0 L Walsh % (Auto) 6.8 Eos % (Auto) 2.0 Baso % (Auto) 0.8 Lymph # (Auto) 1.0 L Walsh # (Auto) 0.5 Eos # (Auto) 0.2 Baso # (Auto) 0.1 Abs Immat Gran (auto) 0.02 Absolute Neuts (auto) 6.1 Absolute Nucleated RBC 0.000 Nucleated RBC % (auto) 0.0 PT 12.9 INR 1.1 Anion Gap 16 Estim Creat Clear Calc 42.3 Estimated GFR 54 Random Glucose 103 Calcium 8.7 Magnesium 2.2 Imaging Radiologist's Impressions: Impressions Chest X-Ray 12/13/21 16:14 IMPRESSION: No congestive change. Query left upper lobe airspace opacity versus an appearance based on lordotic technique. Please repeat the examination as a well centered upright nonlordotic PA and lateral. Assessment and Plan (1) PAF (paroxysmal atrial fibrillation): Status: Acute Plan 86-year-old male with past history of hypertension, hyperlipidemia, arthritis, nonrheumatic mitral regurgitation, paroxysmal AFib on Eliquis, history of b radycardia/Wenckebach heart block-off of beta-seb; presented to the hospital today with a chief complaint of tachycardia. Noted to be in rapid AFib. Admitted for further management. Rapid AFib: Patient received diltiazem IV x1 in the ER. Per Cardiology Dr. Hudson-patient was started on amiodarone for an mg wait and metoprolol 25 mg b.i.d.. Patient will monitor on telemetry. Cardiology is considering pacemaker given history of Wenckebach heart block with sinus pauses. Continue home Eliquis History of hypertension: Continue home HCTZ History of BPH: Continue home Flomax DVT prophylaxis: Patient on Eliquis Code status: Full code Quality Stroke Does the patient have a stroke diagnosis?: No VTE Prior VTE?: No VTE Risk Level:: Medical - moderate - high VTE Device Contraindication: Treatment Not Indicated VTE Drug Contraindication: N/A - Med Ordered
[2021-12-13] MEDS: Apixaban 2.5 MG TABLET PO (21:17)
[2021-12-13 22:09] LABS: COVID-19 Test Negative (Negative); IDNOW Serial# 55D5AD1C
[2021-12-13 23:42] VITALS: BP 129/58; PULSE 58; RESP 16; TEMP 36.4; O2SAT 96
[2021-12-14 04:02] LABS: MANUAL DIFF FLAG NO
[2021-12-14 04:03] LABS: Basophils Absolute Auto 0.1 X10*3/uL (0.0-0.2); Basophils Percent Auto 0.6 % (0-2); Eosinophils Absolute Auto 0.4 X10*3/uL (0.0-0.4); Eosinophils Percent Auto 4.8 % (0-4); Hematocrit 38.4 % (42.0-52.0); Imm Gran Abs Auto 0.02 X10*3/uL (0.00-0.03); Imm Gran Pct Auto 0.2 % (0.0-0.4); Lymphocytes Absolute Auto 1.4 X10*3/uL (1.2-4.9); Lymphocytes Percent Auto 17.2 % (20-40); Mean Corpuscular HGB Conc 33.9 g/dl (31.0-36.0); Mean Corpuscular Hemoglobin 32.6 pg (27.0-33.0); Mean Corpuscular Volume 96.2 fL (80.0-98.0); Mean Platelet Volume 9.5 fL (9.4-12.4); Monocytes Absolute Auto 0.7 X10*3/uL (0.1-1.2); Monocytes Percent Auto 7.8 % (2-11); Neutrophils Absolute Auto 5.8 x10*3/uL (2.0-8.3); Neutrophils Percent Auto 69.4 % (45-73); Platelet Count 237 X10*3/uL (160-400); Red Blood Count 3.99 X10*6/uL (4.60-5.80); Red Cell Distribution Width 12.8 % (11.0-16.0); White Blood Count 8.3 X10*3/uL (4.8-10.8)
[2021-12-14 04:30] LABS: Anion Gap 13 (12-20); Blood Urea Nitrogen 21 mg/dL (9-16); Calcium 8.7 mg/dL (8.4-10.2); Carbon Dioxide 29 mmol/L (22-29); Chloride 101 mmol/L (96-108); Creatinine Clr Calc Pharmacy 52.6; Estimated Glomerular Filt Rate > 60; Glucose Random 88 mg/dL (60-115); Sodium 139 mmol/L (135-145)
[2021-12-14 05:40] VITALS: BP 124/43; PULSE 56; RESP 14; TEMP 36.4; O2SAT 95
--- NOTE | 2021-12-14 07:49 | PC.NURSE ---
report given to lolis mejia
[2021-12-14 08:00] VITALS: BP 113/46; PULSE 67; RESP 18; TEMP 38.3; O2SAT 94
--- NOTE | 2021-12-14 08:56 | PC.NURSE ---
MD notified pt heart rate decreased to 42 bpm, rhythm Afib . Per MD will hold metoprolol PO.
--- NOTE | 2021-12-14 09:39 | MHC.CM.PN ---
Addendum entered by Aria Gilbert 12/14/21 12:23: A PT eval was completed this morning. The rec is [facility]. Spoke with patient and datr re facility preferences. 1st choice was [facility]. No male bed available. 2nd choice [facility], has offered a bed. The pt/dtr have accepted the bed @ [facility]. Plan is Pacer tomorrow dc Sunday. Patient will transport via BLS. Original Note: IMM 12/14/21 Male 86 DX AFIB. He lives @ [facility]. He uses a walk to ambulate. He receives assist with ADLS at the facility. VAX x4. DP STR if he qualifies. He feels that he is weak and needs strengthening. He is also open to VNA services if needed. Dtr Melinda/HCP/RN will provide transport to home. If pt goes to [facility], BLS transport. A copy of his HCP has been requested.
--- NOTE | 2021-12-14 10:45 | PM.CNCAR ---
History of Present Illness History of Present Illness Date of Service: 12/14/21 Requesting physician: Salma Crane Chief complaint: Tachy-lu syndrome Narrative: Pleasant 86 gentleman was seen by Dr. Hudson in the office yesterday and was noted to be in narrow complex tachycardia. He was sent to the emergency department. EKG looks like supraventricular tachycardia versus atrial flutter. In the ER his he beta-seb and amiodarone. He reverted to sinus rhythm and on telemetry has been in and out of slow atrial fibrillation. His heart rates have been as low as 30s at times. His metoprolol and amiodarone has been held. He is denying any symptoms and in fact when he came to the clinic yesterday he did not have any new symptoms at that time too. In particular no chest pain or shortness of breath or dizziness as lightheadedness. No syncope in the past. [facility] Past Medical History Medical History Essential hypertension First degree heart block Hyperlipidemia Non-rheumatic mitral regurgitation PAF (paroxysmal atrial fibrillation) Family History Family History Father No problems noted. Mother No problems noted. Surgical History Surgical History History of total knee replacement Social History Social History Household Members: Caregiver and Other Housing: Assisted Living Facility Do you presently have visiting nurse or other home services: Yes Alcohol intake: current Alcohol intake frequency: a few times a month Patient Tobacco Use Status: Former Tobacco user Tobacco use type: Cigarette Smoked in Last 30 Days: No e-Cigarette/Vaping Use: Never Used Patient Interested in Nicotine Replacement: No Second Hand Smoke Exposure: No Use of substances other than those prescribed or required for medical reasons: No Have you been hit, kicked, punched, or otherwise hurt by someone within the past year? If so, by whom?: No Do you feel safe in your current relationship?: No Current Relationship Is there a partner from a previous relationship who is making you feel unsafe now?: No Are you made to feel afraid or neglected: No Advance Directives: No Advance Directives Information Provided: No Advance Directives on File: No Do you have thoughts of harming others: None Do you have a plan to hurt others: No Plan Recently lost weight without trying: No How much weight loss: Not applicable Eating poorly because of decreased appetite: No Nutrition screen score: 0 Nutrition Risks: No Nutritional Risk Poor oral hygiene: No service: Yes Current occupational status: retired Current occupation: rt hand /retired Cognitive needs: Yes (walker/cane) Hearing needs: No Vision needs: Yes (glasses) Meds Allergies Allergy/AdvReac Type Severity Reaction Status Date / Time No Known Allergies Allergy Verified 12/13/21 15:27 Active Medications: Current Medications Acetaminophen (Acetaminophen 325 Mg Tablet) 650 mg PO Q6H PRN PRN Reason: Pain, Mild (Pain Scale 1-3) Amiodarone HCl (Amiodarone Hcl 200 Mg Tablet) 400 mg PO BID [facility] Apixaban (Apixaban 2.5 Mg Tablet) 2.5 mg PO BID [facility] Last Admin: 12/13/21 21:17 Dose: 2.5 mg Cyanocobalamin (Cyanocobalamin (Vitamin B-12) 1,000 Mcg Tablet) 1,000 mcg PO DAILY [facility] Escitalopram Oxalate (Escitalopram Oxalate 10 Mg Tablet) 10 mg PO DAILY [facility] Hydrochlorothiazide (Hydrochlorothiazide 25 Mg Tablet) 25 mg PO DAILY [facility]; Protocol Melatonin (Melatonin 3 Mg Tablet) 6 mg PO BEDTIME PRN PRN Reason: Insomnia Metoprolol Tartrate (Metoprolol Tartrate 25 Mg Tablet) 25 mg PO BID [facility]; Protocol Last Admin: 12/14/21 08:56 Dose: Not Given Pharmacy Consult (Consult Rx Perform Med Rec) 1 each MISCELLANE ONCE PRN PRN Reason: Consult order Senna (Sennosides 8.6 Mg Tablet) 17.2 mg PO BEDTIME PRN PRN Reason: Constipation Sodium Chloride (0.9 % Sodium Chloride Flush 3 Ml Syringe) 3 ml IVFLUSH QSHIFT [facility] Last Admin: 12/14/21 00:07 Dose: Not Given Tamsulosin HCl (Tamsulosin Hcl 0.4 Mg Capsule) 0.4 mg PO DAILY [facility] Home Medications Medication Instructions Recorded Confirmed Last Taken Type cyanocobalamin (vitamin B-12) 1,000 mcg PO DAILY 10/10/1712/13/21 12/13/21 History 1,000 mcg capsule diclofenac sodium 1 % topical gel 4 g topical BID PRN pain 12/13/21 12/13/21 Unknown History (Voltaren Arthritis Pain) Physical Exam Vital Signs: Vital Signs: Last Vital Signs Temp 100.9 F H 12/14/21 08:00 Pulse 67 12/14/21 08:00 Resp 18 12/14/21 08:00 BP 113/46 L 12/14/21 08:00 Pulse Ox 94 12/14/21 08:00 O2 Del Method 12/14/21 08:00 BMI result Body Mass Index 27.2 GENERAL APPEARANCE: in no acute distress, pleasant. NECK: no carotid bruit, no jugular venous distention. SKIN: no suspicious lesions, warm and dry. HEART: no murmurs, regular rate and rhythm. LUNGS: clear to auscultation bilaterally. ABDOMEN: soft, nontender. EXTREMITIES: no edema. PERIPHERAL PULSES: equal. NEUROLOGIC: No gross deficits, AAO X 3 Objective Labs and Meds Result diagrams: 12/14/21 03:52 12/14/21 03:52 Lab results: Laboratory Results - last 24 hr 12/13/21 12/13/21 12/13/21 15:40 15:40 15:40 WBC 7.9 RBC 4.11 L Hgb 13.3 L Hct 40.0 L MCV 97.3 MCH 32.4 MCHC 33.3 RDW 13.0 Plt Count 236 MPV 9.4 Immature Gran % (Auto) 0.3 Neut % (Auto) 77.1 H Lymph % (Auto) 13.0 L Dewey % (Auto) 6.8 Eos % (Auto) 2.0 Baso % (Auto) 0.8 Lymph # (Auto) 1.0 L Dewey # (Auto) 0.5 Eos # (Auto) 0.2 Baso # (Auto) 0.1 Abs Immat Gran (auto) 0.02 Absolute Neuts (auto) 6.1 Absolute Nucleated RBC 0.000 Nucleated RBC % (auto) 0.0 PT INR Sodium 139 Potassium 4.6 Chloride 101 Carbon Dioxide 27 Anion Gap 16 BUN 25 H Creatinine 1.27 Estim Creat Clear Calc 42.3 Estimated GFR 54 Random Glucose 103 Calcium 8.7 Magnesium 2.2 Troponin I High Sens 10.0 COVID-19 ([facility]) COVID-19 Clin Com 12/13/21 12/13/21 12/14/21 16:01 21:48 03:52 WBC 8.3 RBC 3.99 L Hgb 13.0 L Hct 38.4 L MCV 96.2 MCH 32.6 MCHC 33.9 RDW 12.8 Plt Count 237 MPV 9.5 Immature Gran % (Auto) 0.2 Neut % (Auto) 69.4 Lymph % (Auto) 17.2 L Dewey % (Auto) 7.8 Eos % (Auto) 4.8 H Baso % (Auto) 0.6 Lymph # (Auto) 1.4 Dewey # (Auto) 0.7 Eos # (Auto) 0.4 Baso # (Auto) 0.1 Abs Immat Gran (auto) 0.02 Absolute Neuts (auto) 5.8 Absolute Nucleated RBC 0.000 Nucleated RBC % (auto) 0.0 PT 12.9 INR 1.1 Sodium Potassium Chloride Carbon Dioxide Anion Gap BUN Creatinine Estim Creat Clear Calc Estimated GFR Random Glucose Calcium Magnesium Troponin I High Sens COVID-19 ([facility]) Negative COVID-19 Clin Com See Note 12/14/21 03:52 WBC RBC Hgb Hct MCV MCH MCHC RDW Plt Count MPV Immature Gran % (Auto) Neut % (Auto) Lymph % (Auto) Dewey % (Auto) Eos % (Auto) Baso % (Auto) Lymph # (Auto) Dewey # (Auto) Eos # (Auto) Baso # (Auto) Abs Immat Gran (auto) Absolute Neuts (auto) Absolute Nucleated RBC Nucleated RBC % (auto) PT INR Sodium 139 Potassium 4.0 Chloride 101 Carbon Dioxide 29 Anion Gap 13 BUN 21 H Creatinine 1.02 Estim Creat Clear Calc 52.6 Estimated GFR > 60 Random Glucose 88 Calcium 8.7 Magnesium Troponin I High Sens COVID-19 ([facility]) COVID-19 Clin Com Imaging Radiologist's impression: Impressions Chest X-Ray 12/13/21 16:14 IMPRESSION: No congestive change. Query left upper lobe airspace opacity versus an appearance based on lordotic technique. Please repeat the examination as a well centered upright nonlordotic PA and lateral. Assessment and Plan (1) SVT (supraventricular tachycardia): Status: Acute (2) Tachy-lu syndrome: Status: Acute (3) PAF (paroxysmal atrial fibrillation): Status: Acute Plan Pleasant 86-year-old gentleman who had narrow complex regular tachycardia in the clinic yesterday and was transferred to [facility] Emergency Department. Differentials are supraventricular tachycardia versus atrial flutter. In any case he had reverted back to sinus rhythm and telemetry is showing slow atrial fibrillation alternating with sinus rhythm with prolonged AV conduction delay of 310 milliseconds. Due to bradycardic episodes his beta-seb and amiodarone have been held. I had a detailed discussion with him and his daughter about tachy-lu syndrome and the fact that he will require a pacemaker to manage him safely at home. The patient is agreeable and so is his daughter Melinda who is the healthcare proxy. We will arrange permanent pacemaker for this gentleman tomorrow. Keep him NPO. Once pacemaker has been implanted then I would start amiodarone to prevent paroxysmal atrial fibrillation and other arrhythmia. Thank you for allowing me to participate in the care of your patient. Please feel free to contact me if you have any questions. Procedures Date of Service Date of Service: 12/14/21
[2021-12-14] MEDS: Cyanocobalamin (Vitamin B-12) 1,000 MCG TABLET 1000 MCG PO (10:47)
[2021-12-14] MEDS: Tamsulosin HCL 0.4 MG CAPSULE PO (10:47)
[2021-12-14] MEDS: Apixaban 2.5 MG TABLET PO ×2 (10:48→23:00)
[2021-12-14] MEDS: Escitalopram Oxalate 10 MG TABLET PO (10:48)
[2021-12-14] MEDS: 0.9 % Sodium Chloride Flush 3 ML SYRINGE IVFLUSH ×2 (10:49→17:37)
[2021-12-14 10:56] VITALS: BMI 24.0
[2021-12-14 11:21] VITALS: BP 120/60; PULSE 61; RESP 18; TEMP 37.4; O2SAT 96
--- NOTE | 2021-12-14 11:33 | P.PNIM_ITS ---
Subjective Subjective Date of Service: 12/14/21 Interval History: the patient was seen and evaluated this morning Laying in bed, feels comfortable Heart rate is better controlled with dropped to 30s and pauses overnight, asymptomatic No reported other overnight events. Systemic review: No fever, chills or weakness No chest pain, palpitation No shortness of breath or coughing No abdominal pain, nausea or vomiting No urinary symptoms No any rash or wounds Physical Exam Vital Signs: Vital Signs: Last Vital Signs Temp 99.3 F 12/14/21 11:21 Pulse 61 12/14/21 11:21 Resp 18 12/14/21 11:21 BP 120/60 12/14/21 11:21 Pulse Ox 96 12/14/21 11:21 O2 Del Method 12/14/21 11:21 BMI result Body Mass Index 24.0 Const: Other: Constitutional : Alert, oriented, not in distress Neck : Normal inspection, Supple Cardiovascular : Irregular irregular, no JVP, no lower extremity edema Respiratory : fair bilateral air entry, no crackles, wheezes or rhonchi Gastrointestinal: soft, lax, Normal bowel sounds, Non tender Skin : Warm, Dry Neurological : Alert & oriented x3, No focal deficit , CN 2-12 within normal Objective Data Active Medications Acetaminophen (Acetaminophen 325 Mg Tablet) 650 mg PO Q6H PRN PRN Reason: Pain, Mild (Pain Scale 1-3) Amiodarone HCl (Amiodarone Hcl 200 Mg Tablet) 400 mg PO BID [facility] Last Admin: 12/14/21 10:48 Dose: Not Given Documented By: CHUCHO Non-Admin Reason: Physician Held Med Apixaban (Apixaban 2.5 Mg Tablet) 2.5 mg PO BID [facility] Last Admin: 12/14/21 10:48 Dose: 2.5 mg Documented By: CHUCHO Cyanocobalamin (Cyanocobalamin (Vitamin B-12) 1,000 Mcg Tablet) 1,000 mcg PO DAILY [facility] Last Admin: 12/14/21 10:47 Dose: 1,000 mcg Documented By: CHUCHO Escitalopram Oxalate (Escitalopram Oxalate 10 Mg Tablet) 10 mg PO DAILY [facility] Last Admin: 12/14/21 10:48 Dose: 10 mg Documented By: CHUCHO Hydrochlorothiazide (Hydrochlorothiazide 25 Mg Tablet) 25 mg PO DAILY [facility]; Protocol Last Admin: 12/14/21 10:48 Dose: Not Given Documented By: CHUCHO Non-Admin Reason: Physician Held Med Melatonin (Melatonin 3 Mg Tablet) 6 mg PO BEDTIME PRN PRN Reason: Insomnia Metoprolol Tartrate (Metoprolol Tartrate 25 Mg Tablet) 25 mg PO BID [facility]; Protocol Last Admin: 12/14/21 08:56 Dose: Not Given Documented By: CHUCHO Non-Admin Reason: HR <60 Pharmacy Consult (Consult Rx Perform Med Rec) 1 each MISCELLANE ONCE PRN PRN Reason: Consult order Senna (Sennosides 8.6 Mg Tablet) 17.2 mg PO BEDTIME PRN PRN Reason: Constipation Sodium Chloride (0.9 % Sodium Chloride Flush 3 Ml Syringe) 3 ml IVFLUSH QSHIFT [facility] Last Admin: 12/14/21 10:49 Dose: 3 ml Documented By: CHUCHO Tamsulosin HCl (Tamsulosin Hcl 0.4 Mg Capsule) 0.4 mg PO DAILY [facility] Last Admin: 12/14/21 10:47 Dose: 0.4 mg Documented By: CHUCHO Labs CBC & Chem 7: 12/14/21 03:52 12/14/21 03:52 Labs: Laboratory Results - last 24 hr 12/13/21 12/13/21 12/13/21 15:40 15:40 16:01 MCV 97.3 MCH 32.4 MCHC 33.3 RDW 13.0 Plt Count 236 MPV 9.4 Immature Gran % (Auto) 0.3 Neut % (Auto) 77.1 H Lymph % (Auto) 13.0 L Ellis % (Auto) 6.8 Eos % (Auto) 2.0 Baso % (Auto) 0.8 Lymph # (Auto) 1.0 L Ellis # (Auto) 0.5 Eos # (Auto) 0.2 Baso # (Auto) 0.1 Abs Immat Gran (auto) 0.02 Absolute Neuts (auto) 6.1 Absolute Nucleated RBC 0.000 Nucleated RBC % (auto) 0.0 PT 12.9 INR 1.1 Anion Gap 16 Estim Creat Clear Calc 42.3 Estimated GFR 54 Random Glucose 103 Calcium 8.7 Magnesium 2.2 COVID-19 ([facility]) COVID-19 Clin Com 12/13/21 12/14/21 12/14/21 21:48 03:52 03:52 MCV 96.2 MCH 32.6 MCHC 33.9 RDW 12.8 Plt Count 237 MPV 9.5 Immature Gran % (Auto) 0.2 Neut % (Auto) 69.4 Lymph % (Auto) 17.2 L Ellis % (Auto) 7.8 Eos % (Auto) 4.8 H Baso % (Auto) 0.6 Lymph # (Auto) 1.4 Ellis # (Auto) 0.7 Eos # (Auto) 0.4 Baso # (Auto) 0.1 Abs Immat Gran (auto) 0.02 Absolute Neuts (auto) 5.8 Absolute Nucleated RBC 0.000 Nucleated RBC % (auto) 0.0 PT INR Anion Gap 13 Estim Creat Clear Calc 52.6 Estimated GFR > 60 Random Glucose 88 Calcium 8.7 Magnesium COVID-19 ([facility]) Negative COVID-19 Clin Com See Note Assessment and Plan (1) PAF (paroxysmal atrial fibrillation): Status: Acute (2) Heart block atrioventricular: Status: Acute Plan An 86 years old male with PMH of HTN, HLD, arthritis, MR, paroxysmal AFib on Eliquis, bradycardia with Wenckebach heart block who presents to the hospital as referral from cardiology office for rapid AFib. Paroxysmal AFib with RVR Frequent bradycardia and pauses Responded well to treatment with beta-seb and amiodarone continue amiodarone load Hold beta-seb Cardiology input appreciated, to place permanent pacemaker tomorrow Continue Eliquis Hypertension continue hydrochlorothiazide BPH continue tamsulosin DVT PPX Eliquis The patient will need a overnight hospital stay for heart rate monitoring and placement of permanent pacemaker tomorrow to prevent possible decompensation and heart block Quality Stroke Does the patient have a stroke diagnosis?: No VTE Prior VTE?: No VTE Risk Level:: Medical - moderate - high VTE Device Contraindication: Treatment Not Indicated VTE Drug Contraindication: N/A - Med Ordered
[2021-12-14 15:15] VITALS: BP 129/63; PULSE 55; RESP 18; TEMP 37; O2SAT 96
[2021-12-14] MEDS: Amiodarone HCL 200 MG TABLET 400 MG PO (22:58)
[2021-12-14] MEDS: Metoprolol Tartrate 25 MG TABLET PO (23:00)
[2021-12-14 23:48] VITALS: PULSE 68; RESP 15
[2021-12-15] VITALS (13 sets, daily range): BP systolic 105–153; BP diastolic 45–129; PULSE 59–144; RESP 11–20; TEMP 36.1–37.6; O2SAT 94–99
[2021-12-15] MEDS: 0.9 % Sodium Chloride Flush 3 ML SYRINGE IVFLUSH ×3 (02:08→19:58)
[2021-12-15 07:23] LABS: Hematocrit 38.3 % (42.0-52.0); Mean Corpuscular HGB Conc 33.9 g/dl (31.0-36.0); Mean Corpuscular Hemoglobin 32.4 pg (27.0-33.0); Mean Corpuscular Volume 95.5 fL (80.0-98.0); Mean Platelet Volume 9.9 fL (9.4-12.4); Platelet Count 241 X10*3/uL (160-400); Red Blood Count 4.01 X10*6/uL (4.60-5.80); Red Cell Distribution Width 12.7 % (11.0-16.0); White Blood Count 7.8 X10*3/uL (4.8-10.8)
[2021-12-15 07:39] LABS: Anion Gap 15 (12-20); Blood Urea Nitrogen 21 mg/dL (9-16); Calcium 8.8 mg/dL (8.4-10.2); Carbon Dioxide 26 mmol/L (22-29); Chloride 101 mmol/L (96-108); Creatinine Clr Calc Pharmacy 49.2; Estimated Glomerular Filt Rate > 60; Glucose Random 91 mg/dL (60-115); Potassium 4.2 mmol/L (3.3-5.1); Sodium 138 mmol/L (135-145)
--- NOTE | 2021-12-15 11:28 | MHC.CM.PN ---
Addendum entered by Aria Gilbert 12/15/21 14:34: INSURANCE AUTHORIZATION HAS BEEN RECEIVED FOR STR @ [facility], FOR TOMORROW. HE WILL TRANSPORT VIA BLS. Original Note: Updated clinical info has been sent to the facility for insurance authorization. [facility] is starting auth today. Discharge is anticipated tomorrow. He will transport via BLS to [facility] for STR.
--- NOTE | 2021-12-15 13:22 | PC.NURSE ---
20g left ac prior to arrival
--- NOTE | 2021-12-15 13:24 | P.CONAN_ITS ---
[facility] Active Problems Active Problems: All Active Problems (Updated 12/14/21 @ 13:58 by Jaime Malik MD) PAF (paroxysmal atrial fibrillation) (Acute) Tachy-lu syndrome (Acute) Osteoarthritis of right hip (Acute) Falls (Acute) SVT (supraventricular tachycardia) (Acute) Heart block atrioventricular (Acute) Essential hypertension (Acute) Osteoarthritis of right hip (Acute) Right thigh pain (Acute) Bilateral leg weakness (Acute) Strain of unspecified muscles, fascia and tendons at thigh level, left thigh, initial encounter (Acute) Essential hypertension (Acute) Weakness of right lower extremity (Acute) Right thigh pain (Acute) Hyperlipidemia (Acute) PAF (paroxysmal atrial fibrillation) (Acute) First degree heart block (Acute) Non-rheumatic mitral regurgitation (Acute) Past Medical History Medical History Essential hypertension First degree heart block Hyperlipidemia Non-rheumatic mitral regurgitation PAF (paroxysmal atrial fibrillation) Family History Family History Father No problems noted. Mother No problems noted. Family history of problems with anesthesia: No Surgical History Surgical History History of total knee replacement History of Problems with Anesthesia: No Social History Social History Household Members: Caregiver and Other Housing: Assisted Living Facility Do you presently have visiting nurse or other home services: Yes Alcohol intake: current Alcohol intake frequency: a few times a month Patient Tobacco Use Status: Former Tobacco user Tobacco use type: Cigarette Smoked in Last 30 Days: No e-Cigarette/Vaping Use: Never Used Patient Interested in Nicotine Replacement: No Second Hand Smoke Exposure: No Use of substances other than those prescribed or required for medical reasons: No Currently Displaying Signs/Symptoms of Drug Intoxication Withdrawal: No Have you been hit, kicked, punched, or otherwise hurt by someone within the past year? If so, by whom?: No Do you feel safe in your current relationship?: No Current Relationship Is there a partner from a previous relationship who is making you feel unsafe now?: No Are you made to feel afraid or neglected: No Are you DNR?: No Advance Directives: No Advance Directives Information Provided: No Advance Directives on File: No Do you have thoughts of harming others: None Do you have a plan to hurt others: No Plan Recently lost weight without trying: No How much weight loss: Not applicable Eating poorly because of decreased appetite: No Nutrition screen score: 0 Nutrition Risks: No Nutritional Risk Poor oral hygiene: No service: Yes Current occupational status: retired Current occupation: rt hand /retired Cognitive needs: Yes (walker/cane) Hearing needs: No Vision needs: Yes (glasses) Meds Allergies Allergy/AdvReac Type Severity Reaction Status Date / Time No Known Allergies Allergy Verified 12/13/21 15:27 Active Medications: Current Medications Acetaminophen (Acetaminophen 325 Mg Tablet) 650 mg PO Q6H PRN PRN Reason: Pain, Mild (Pain Scale 1-3) Amiodarone HCl (Amiodarone Hcl 200 Mg Tablet) 400 mg PO BID [facility] Last Admin: 12/15/21 09:58 Dose: Not Given Apixaban (Apixaban 2.5 Mg Tablet) 2.5 mg PO BID [facility] Last Admin: 12/15/21 09:59 Dose: Not Given Cyanocobalamin (Cyanocobalamin (Vitamin B-12) 1,000 Mcg Tablet) 1,000 mcg PO DAILY [facility] Last Admin: 12/15/21 10:00 Dose: Not Given Escitalopram Oxalate (Escitalopram Oxalate 10 Mg Tablet) 10 mg PO DAILY [facility] Last Admin: 12/15/21 10:00 Dose: Not Given Hydrochlorothiazide (Hydrochlorothiazide 25 Mg Tablet) 25 mg PO DAILY [facility]; Protocol Last Admin: 12/15/21 10:00 Dose: Not Given Vancomycin HCl 1,000 mg/ (Sodium Chloride) 270 mls @ 270 mls/hr IV ONCE ONE Stop: 12/15/21 14:06 Melatonin (Melatonin 3 Mg Tablet) 6 mg PO BEDTIME PRN PRN Reason: Insomnia Metoprolol Tartrate (Metoprolol Tartrate 25 Mg Tablet) 25 mg PO BID [facility]; Protocol Last Admin: 12/15/21 10:00 Dose: Not Given Pharmacy Consult (Consult Rx Perform Med Rec) 1 each MISCELLANE ONCE PRN PRN Reason: Consult order Senna (Sennosides 8.6 Mg Tablet) 17.2 mg PO BEDTIME PRN PRN Reason: Constipation Sodium Chloride (0.9 % Sodium Chloride Flush 3 Ml Syringe) 3 ml IVFLUSH QSHIFT [facility] Last Admin: 12/15/21 09:56 Dose: 3 ml Tamsulosin HCl (Tamsulosin Hcl 0.4 Mg Capsule) 0.4 mg PO DAILY [facility] Last Admin: 12/15/21 10:00 Dose: Not Given Home Medications Medication Instructions Recorded Confirmed Last Taken Type cyanocobalamin (vitamin B-12) 1,000 mcg PO DAILY 02/03/20 12/13/21 12/13/21 History 1,000 mcg capsule diclofenac sodium 1 % topical gel 4 g topical BID PRN pain 12/13/21 12/13/21 Unknown History (Voltaren Arthritis Pain) Exam Exam Date and Time: December 15, 2021 1324 Height,Weight and Vital Signs: Height 5 ft 10 in Weight 76.2 kg Last Vital Signs Temp 97.0 F 12/15/21 13:20 Pulse 60 12/15/21 13:20 Resp 16 12/15/21 13:20 BP 153/129 H 12/15/21 13:20 Pulse Ox 96 12/15/21 13:20 O2 Del Method 12/15/21 13:20 Pertinent Lab Results Pertinent Lab Results: Laboratory Tests 12/13/21 12/13/21 12/13/21 15:40 15:40 15:40 WBC 7.9 RBC 4.11 L Hgb 13.3 L Hct 40.0 L MCV 97.3 MCH 32.4 MCHC 33.3 RDW 13.0 Plt Count 236 MPV 9.4 Immature Gran % (Auto) 0.3 Neut % (Auto) 77.1 H Lymph % (Auto) 13.0 L [place] % (Auto) 6.8 Eos % (Auto) 2.0 Baso % (Auto) 0.8 Lymph # (Auto) 1.0 L [place] # (Auto) 0.5 Eos # (Auto) 0.2 Baso # (Auto) 0.1 Abs Immat Gran (auto) 0.02 Absolute Neuts (auto) 6.1 Absolute Nucleated RBC 0.000 Nucleated RBC % (auto) 0.0 PT INR Sodium 139 Potassium 4.6 Chloride 101 Carbon Dioxide 27 Anion Gap 16 BUN 25 H Creatinine 1.27 Estim Creat Clear Calc 42.3 Estimated GFR 54 Random Glucose 103 Calcium 8.7 Magnesium 2.2 Troponin I High Sens 10.0 COVID-19 ([facility]) COVID-19 Clin Com 12/13/21 12/13/21 12/14/21 16:01 21:48 03:52 WBC 8.3 RBC 3.99 L Hgb 13.0 L Hct 38.4 L MCV 96.2 MCH 32.6 MCHC 33.9 RDW 12.8 Plt Count 237 MPV 9.5 Immature Gran % (Auto) 0.2 Neut % (Auto) 69.4 Lymph % (Auto) 17.2 L [place] % (Auto) 7.8 Eos % (Auto) 4.8 H Baso % (Auto) 0.6 Lymph # (Auto) 1.4 [place] # (Auto) 0.7 Eos # (Auto) 0.4 Baso # (Auto) 0.1 Abs Immat Gran (auto) 0.02 Absolute Neuts (auto) 5.8 Absolute Nucleated RBC 0.000 Nucleated RBC % (auto) 0.0 PT 12.9 INR 1.1 Sodium Potassium Chloride Carbon Dioxide Anion Gap BUN Creatinine Estim Creat Clear Calc Estimated GFR Random Glucose Calcium Magnesium Troponin I High Sens COVID-19 ([facility]) Negative COVID-19 Clin Com See Note 12/14/21 12/15/21 12/15/21 03:52 06:53 06:53 WBC 7.8 RBC 4.01 L Hgb 13.0 L Hct 38.3 L MCV 95.5 MCH 32.4 MCHC 33.9 RDW 12.7 Plt Count 241 MPV 9.9 Immature Gran % (Auto) Neut % (Auto) Lymph % (Auto) [place] % (Auto) Eos % (Auto) Baso % (Auto) Lymph # (Auto) [place] # (Auto) Eos # (Auto) Baso # (Auto) Abs Immat Gran (auto) Absolute Neuts (auto) Absolute Nucleated RBC 0.000 Nucleated RBC % (auto) 0.0 PT INR Sodium 139 138 Potassium 4.0 4.2 Chloride 101 101 Carbon Dioxide 29 26 Anion Gap 13 15 BUN 21 H 21 H Creatinine 1.02 1.09 Estim Creat Clear Calc 52.6 49.2 Estimated GFR > 60 > 60 Random Glucose 88 91 Calcium 8.7 8.8 Magnesium Troponin I High Sens COVID-19 ([facility]) COVID-19 Clin Com Airway Mallampati Class: II TM Dist: >3cm Neck ROM: Full Assessment and Plan Assessment Anesthesia Assessment: Anesthesia Plan Discussed and Chart Reviewed Final Anesthetic Review Family History of Problems with Anesthesia: No History of Problems with Anesthesia: No NPO: Yes Final Preanesthetic Review: Meds/Allgs Chart Reviewed, Consent Obtained/Reviewed and Anes Risks/Benef Reviewed Patient Risk: Intermediate Procedure Risk: Intermediate Anesthetic Plan Anesthetic Plan: GA Disposition: Standard PACU
[2021-12-15] MEDS: vancomycin HCL 1,000 MG in 0.9 % Sodium Chloride 250 ML 270 MG IV (13:38)
[2021-12-15] MEDS: Lactated Ringers 1,000 ML 100 ML IVCONT ×2 (13:40→19:59)
--- NOTE | 2021-12-15 14:11 | P.PNIM_ITS ---
Subjective Subjective Date of Service: 12/15/21 Interval History: the patient was seen and evaluated this morning Laying in bed, feels comfortable Heart rate is better controlled Plan for permanent pacemaker placement No reported other overnight events. Systemic review: No fever, chills or weakness No chest pain, palpitation No shortness of breath or coughing No abdominal pain, nausea or vomiting No urinary symptoms No any rash or wounds Physical Exam Vital Signs: Vital Signs: Last Vital Signs Temp 97.0 F 12/15/21 13:20 Pulse 60 12/15/21 13:20 Resp 16 12/15/21 13:20 BP 153/129 H 12/15/21 13:20 Pulse Ox 96 12/15/21 13:20 O2 Del Method 12/15/21 13:20 BMI result Body Mass Index 24.0 Const: Other: Constitutional : Alert, oriented, not in distress Neck : Normal inspection, Supple Cardiovascular : Irregular irregular, no JVP, no lower extremity edema Respiratory : fair bilateral air entry, no crackles, wheezes or rhonchi Gastrointestinal: soft, lax, Normal bowel sounds, Non tender Skin : Warm, Dry Neurological : Alert & oriented x3, No focal deficit , CN 2-12 within normal Objective Data Active Medications Acetaminophen (Acetaminophen 325 Mg Tablet) 650 mg PO Q6H PRN PRN Reason: Pain, Mild (Pain Scale 1-3) Amiodarone HCl (Amiodarone Hcl 200 Mg Tablet) 400 mg PO BID [facility] Last Admin: 12/15/21 09:58 Dose: Not Given Documented By: HORTENSIA Non-Admin Reason: NPO Apixaban (Apixaban 2.5 Mg Tablet) 2.5 mg PO BID [facility] Last Admin: 12/15/21 09:59 Dose: Not Given Documented By: HORTENSIA Non-Admin Reason: NPO Cyanocobalamin (Cyanocobalamin (Vitamin B-12) 1,000 Mcg Tablet) 1,000 mcg PO DAILY [facility] Last Admin: 12/15/21 10:00 Dose: Not Given Documented By: HORTENSIA Non-Admin Reason: NPO Escitalopram Oxalate (Escitalopram Oxalate 10 Mg Tablet) 10 mg PO DAILY [facility] Last Admin: 12/15/21 10:00 Dose: Not Given Documented By: HORTENSIA Non-Admin Reason: NPO Fentanyl (Fentanyl Citrate/Pf 100 Mcg/2 Ml Vial) 25 mcg IVPUSH Q5M PRN; Protocol PRN Reason: Pain, Moderate (Pain Scale 4-6 Hydrochlorothiazide (Hydrochlorothiazide 25 Mg Tablet) 25 mg PO DAILY [facility]; Protocol Last Admin: 12/15/21 10:00 Dose: Not Given Documented By: HORTENSIA Non-Admin Reason: NPO Lactated Ringer's (Lr) 1,000 mls @ 100 mls/hr IVCONT .Q10H [facility] Last Admin: 12/15/21 13:40 Dose: 100 mls/hr Documented By: HANY Melatonin (Melatonin 3 Mg Tablet) 6 mg PO BEDTIME PRN PRN Reason: Insomnia Metoprolol Tartrate (Metoprolol Tartrate 25 Mg Tablet) 25 mg PO BID [facility]; Protocol Last Admin: 12/15/21 10:00 Dose: Not Given Documented By: HORTENSIA Non-Admin Reason: NPO Ondansetron HCl (Ondansetron Hcl 4 Mg/2 Ml Vial) 4 mg IVPUSH ONCE PRN PRN Reason: Nausea and Vomiting Pharmacy Consult (Consult Rx Perform Med Rec) 1 each MISCELLANE ONCE PRN PRN Reason: Consult order Senna (Sennosides 8.6 Mg Tablet) 17.2 mg PO BEDTIME PRN PRN Reason: Constipation Sodium Chloride (0.9 % Sodium Chloride Flush 3 Ml Syringe) 3 ml IVFLUSH QSHIFT [facility] Last Admin: 12/15/21 09:56 Dose: 3 ml Documented By: HORTENSIA Tamsulosin HCl (Tamsulosin Hcl 0.4 Mg Capsule) 0.4 mg PO DAILY [facility] Last Admin: 12/15/21 10:00 Dose: Not Given Documented By: HORTENSIA Non-Admin Reason: NPO Labs CBC & Chem 7: 12/15/21 06:53 12/15/21 06:53 Labs: Laboratory Results - last 24 hr 12/15/21 12/15/21 06:53 06:53 MCV 95.5 MCH 32.4 MCHC 33.9 RDW 12.7 Plt Count 241 MPV 9.9 Absolute Nucleated RBC 0.000 Nucleated RBC % (auto) 0.0 Anion Gap 15 Estim Creat Clear Calc 49.2 Estimated GFR > 60 Random Glucose 91 Calcium 8.8 Assessment and Plan (1) Tachy-lu syndrome: Status: Acute (2) PAF (paroxysmal atrial fibrillation): Status: Acute Plan An 86 years old male with PMH of HTN, HLD, arthritis, MR, paroxysmal AFib on Eliquis, bradycardia with Wenckebach heart block who presents to the hospital as referral from cardiology office for rapid AFib. Paroxysmal AFib with RVR Tachy-lu syndrome Responded well to treatment with amiodarone continue amiodarone load Hold beta-seb Cardiology input appreciated, to place permanent pacemaker Plan for ppm placement today Continue Eliquis Physical deconditioning For STR replacement Hypertension continue hydrochlorothiazide BPH continue tamsulosin DVT PPX Eliquis The patient will need a overnight hospital stay for heart rate monitoring and placement of permanent pacemaker to prevent possible decompensation and heart block Quality Stroke Does the patient have a stroke diagnosis?: No VTE Prior VTE?: No VTE Risk Level:: Medical - moderate - high VTE Device Contraindication: Treatment Not Indicated VTE Drug Contraindication: N/A - Med Ordered
--- NOTE | 2021-12-15 15:29 | W.PM.CCCN ---
History of Present Illness Data of Consult Service Date: 12/15/21 Requesting physician: Jaime Malik Primary Care Provider: Mikel Hong MD [facility] Past Medical History Medical History Essential hypertension First degree heart block Hyperlipidemia Non-rheumatic mitral regurgitation PAF (paroxysmal atrial fibrillation) Family History Family History Father No problems noted. Mother No problems noted. Surgical History Surgical History History of total knee replacement Social History Social History Household Members: Caregiver and Other Housing: Assisted Living Facility Do you presently have visiting nurse or other home services: Yes Alcohol intake: current Alcohol intake frequency: a few times a month Patient Tobacco Use Status: Former Tobacco user Tobacco use type: Cigarette Smoked in Last 30 Days: No e-Cigarette/Vaping Use: Never Used Patient Interested in Nicotine Replacement: No Second Hand Smoke Exposure: No Use of substances other than those prescribed or required for medical reasons: No Currently Displaying Signs/Symptoms of Drug Intoxication Withdrawal: No Have you been hit, kicked, punched, or otherwise hurt by someone within the past year? If so, by whom?: No Do you feel safe in your current relationship?: No Current Relationship Is there a partner from a previous relationship who is making you feel unsafe now?: No Are you made to feel afraid or neglected: No Are you DNR?: No Advance Directives: No Advance Directives Information Provided: No Advance Directives on File: No Do you have thoughts of harming others: None Do you have a plan to hurt others: No Plan Recently lost weight without trying: No How much weight loss: Not applicable Eating poorly because of decreased appetite: No Nutrition screen score: 0 Nutrition Risks: No Nutritional Risk Poor oral hygiene: No service: Yes Current occupational status: retired Current occupation: rt hand /retired Cognitive needs: Yes (walker/cane) Hearing needs: No Vision needs: Yes (glasses) Meds Allergies Allergy/AdvReac Type Severity Reaction Status Date / Time No Known Allergies Allergy Verified 12/13/21 15:27 Active Medications: Current Medications Acetaminophen (Acetaminophen 325 Mg Tablet) 650 mg PO Q6H PRN PRN Reason: Pain, Mild (Pain Scale 1-3) Amiodarone HCl (Amiodarone Hcl 200 Mg Tablet) 400 mg PO BID [facility] Last Admin: 12/15/21 09:58 Dose: Not Given Apixaban (Apixaban 2.5 Mg Tablet) 2.5 mg PO BID [facility] Last Admin: 12/15/21 09:59 Dose: Not Given Cyanocobalamin (Cyanocobalamin (Vitamin B-12) 1,000 Mcg Tablet) 1,000 mcg PO DAILY [facility] Last Admin: 12/15/21 10:00 Dose: Not Given Escitalopram Oxalate (Escitalopram Oxalate 10 Mg Tablet) 10 mg PO DAILY [facility] Last Admin: 12/15/21 10:00 Dose: Not Given Fentanyl (Fentanyl Citrate/Pf 100 Mcg/2 Ml Vial) 25 mcg IVPUSH Q5M PRN; Protocol PRN Reason: Pain, Moderate (Pain Scale 4-6 Hydrochlorothiazide (Hydrochlorothiazide 25 Mg Tablet) 25 mg PO DAILY [facility]; Protocol Last Admin: 12/15/21 10:00 Dose: Not Given Lactated Ringer's (Lr) 1,000 mls @ 100 mls/hr IVCONT .Q10H [facility] Last Admin: 12/15/21 13:40 Dose: 100 mls/hr Melatonin (Melatonin 3 Mg Tablet) 6 mg PO BEDTIME PRN PRN Reason: Insomnia Metoprolol Tartrate (Metoprolol Tartrate 25 Mg Tablet) 25 mg PO BID [facility]; Protocol Last Admin: 12/15/21 10:00 Dose: Not Given Ondansetron HCl (Ondansetron Hcl 4 Mg/2 Ml Vial) 4 mg IVPUSH ONCE PRN PRN Reason: Nausea and Vomiting Pharmacy Consult (Consult Rx Perform Med Rec) 1 each MISCELLANE ONCE PRN PRN Reason: Consult order Senna (Sennosides 8.6 Mg Tablet) 17.2 mg PO BEDTIME PRN PRN Reason: Constipation Sodium Chloride (0.9 % Sodium Chloride Flush 3 Ml Syringe) 3 ml IVFLUSH QSHIFT [facility] Last Admin: 12/15/21 09:56 Dose: 3 ml Tamsulosin HCl (Tamsulosin Hcl 0.4 Mg Capsule) 0.4 mg PO DAILY [facility] Last Admin: 12/15/21 10:00 Dose: Not Given Home Medications Medication Instructions Recorded Confirmed Last Taken Type cyanocobalamin (vitamin B-12) 1,000 mcg PO DAILY 02/03/20 12/13/21 12/13/21 History 1,000 mcg capsule diclofenac sodium 1 % topical gel 4 g topical BID PRN pain 12/13/21 12/13/21 Unknown History (Voltaren Arthritis Pain) Physical Exam Vital Signs: Vital Signs: Last Vital Signs Temp 97.0 F 12/15/21 13:20 Pulse 60 12/15/21 13:20 Resp 16 12/15/21 13:20 BP 153/129 H 12/15/21 13:20 Pulse Ox 96 12/15/21 13:20 O2 Del Method 12/15/21 13:20 BMI result Body Mass Index 24.0 Results Labs CBC & Chem 7: 12/15/21 06:53 12/15/21 06:53 Labs: Short CBC 12/15/21 Range/Units 06:53 WBC 7.8 (4.8-10.8) X10*3/uL Hgb 13.0 L (14.0-18.0) g/dl Hct 38.3 L (42.0-52.0) % Plt Count 241 (160-400) X10*3/uL BMP 12/15/21 06:53 Sodium 138 Potassium 4.2 Chloride 101 Carbon Dioxide 26 BUN 21 H Creatinine 1.09 Calcium 8.8
--- NOTE | 2021-12-15 15:29 | W.PM.OPN ---
Operative Note Operative Note Date of Service: 12/15/21 Narrative: Tachycardia / bradycardia syndrome with symptomatic bradycardia due to slow atrial fibrillation rate in the 30s alternating with paroxysmal atrial flutter and atrial fibrillation with rates exceeding 150 placed a permanent dual-chamber Medtronic pacemaker on this date without complication after sterile preparation and draping utilizing fluoroscopic guidance I 1st performed subclavian venography highlighting the extra thoracic and intrathoracic subclavian venous systems demonstrating patency and then made a careful skin incision and dissected down to the level of the prepectoral fascia partially creating the pocket along that plane securing all bleeders and then gained separate entry x2 into the intrathoracic subclavian venous system passing retrograde with Seldinger technique to J tipped guidewires to the right atrium and then utilized to 7 Vietnamese introducers 1st passing a 58 cm active fixation lead to the right ventricular apex where screw was deployed well tethered 10 volts there was no phrenic irritation capture threshold 0.75 volts at impedance of 855 Ohms with sensing R-wave of 9.8 mV so that lead was sewn and tethered to the pectoral muscle in the floor of the pocket then passed an active fixation right atrial lead to clinically fluoroscopic Lashawn what appeared to be the right atrial appendage deploying the screw with excellent injury current 10 volts no phrenic irritation sensing P-wave 4.4 mV impedance 532 Ohms capture threshold 0.5 volts and that lead was sewn and tethered to the pectoral muscle in the floor of the pocket I then completed the pocket along the plane of the prepectoral fascia again securing all bleeders placed the 2 wires into the generator and they were both well tethered with no change in impedance and leads and generator were placed in the pocket and the wound was closed in 3 layers sterilely dressed patient removed the table neurologically intact without complication doing well and awaiting postoperative chest x-ray in the postanesthesia unit
[2021-12-15] MEDS: Amiodarone HCL 200 MG TABLET 400 MG PO (19:58)
[2021-12-15] MEDS: Metoprolol Tartrate 25 MG TABLET PO (19:58)
[2021-12-16 04:00] VITALS: BP 117/55; PULSE 60; RESP 16; TEMP 37.1; O2SAT 97
[2021-12-16] MEDS: Lactated Ringers 1,000 ML 100 ML IVCONT (06:03)
[2021-12-16 06:37] LABS: Hematocrit 36.9 % (42.0-52.0); Hemoglobin 12.4 g/dl (14.0-18.0); Mean Corpuscular HGB Conc 33.6 g/dl (31.0-36.0); Mean Corpuscular Hemoglobin 32.5 pg (27.0-33.0); Mean Corpuscular Volume 96.6 fL (80.0-98.0); Mean Platelet Volume 9.9 fL (9.4-12.4); Platelet Count 209 X10*3/uL (160-400); Red Blood Count 3.82 X10*6/uL (4.60-5.80); Red Cell Distribution Width 12.8 % (11.0-16.0); White Blood Count 8.2 X10*3/uL (4.8-10.8)
[2021-12-16 06:55] LABS: Anion Gap 14 (12-20); Blood Urea Nitrogen 18 mg/dL (9-16); Calcium 8.3 mg/dL (8.4-10.2); Carbon Dioxide 25 mmol/L (22-29); Chloride 102 mmol/L (96-108); Creatinine Clr Calc Pharmacy 51.1; Estimated Glomerular Filt Rate > 60; Glucose Random 99 mg/dL (60-115); Sodium 137 mmol/L (135-145)
[2021-12-16 08:00] VITALS: BP 114/54; PULSE 63; RESP 16; O2SAT 96
[2021-12-16 08:48] VITALS: BP 114/54; PULSE 63; O2SAT 96
--- NOTE | 2021-12-16 09:12 | P.PNCA_ITS ---
Subjective Subjective Date of Service: 12/16/21 Interval history: Status post permanent pacemaker yesterday. Device has not been interrogated yet. Chest x-ray is showing adequately positio nicole without any pneumothorax. Physical Exam Vital Signs: Last Vital Signs Temp 98.8 F 12/16/21 04:00 Pulse 63 12/16/21 08:48 Resp 16 12/16/21 08:00 BP 114/54 L 12/16/21 08:48 Pulse Ox 96 12/16/21 08:48 O2 Del Method 12/16/21 04:00 O2 Flow Rate 2 12/15/21 19:22 BMI result Body Mass Index 24.0 GENERAL APPEARANCE: in no acute distress, pleasant. NECK: no carotid bruit, no jugular venous distention. SKIN: no suspicious lesions, warm and dry. Left chest wall pacemaker site stable. No hematoma. HEART: no murmurs, regular rate and rhythm. LUNGS: clear to auscultation bilaterally. ABDOMEN: soft, nontender. EXTREMITIES: no edema. PERIPHERAL PULSES: equal. NEUROLOGIC: No gross deficits, AAO X 3 Objective Labs and Meds Result diagrams: 12/16/21 06:12 12/16/21 06:12 Lab results: Laboratory Results - last 24 hr 12/16/21 12/16/21 06:12 06:12 WBC 8.2 RBC 3.82 L Hgb 12.4 L Hct 36.9 L MCV 96.6 MCH 32.5 MCHC 33.6 RDW 12.8 Plt Count 209 MPV 9.9 Absolute Nucleated RBC 0.000 Nucleated RBC % (auto) 0.0 Sodium 137 Potassium 4.0 Chloride 102 Carbon Dioxide 25 Anion Gap 14 BUN 18 H Creatinine 1.05 Estim Creat Clear Calc 51.1 Estimated GFR > 60 Random Glucose 99 Calcium 8.3 L Imaging Radiologist's impression: Impressions Guidance Fluoroscopy 12/15/21 15:00 IMPRESSION: Fluoroscopy guidance for dual chamber pacemaker placement. Chest X-Ray 12/15/21 15:55 IMPRESSION: Normal appearance of new left chest wall pacemaker without complication Chest X-Ray 12/16/21 07:37 IMPRESSION: Dual-lead pacemaker, with lead positioning as described above. No pneumothorax. Progress Note: A&P Assessment and plan (1) Tachy-lu syndrome: Status: Acute (2) PAF (paroxysmal atrial fibrillation): Status: Acute Plan [age] gentleman with tachy-lu syndrome. He had regular narrow complex tachycardia for which he was sent to the emergency department. Subsequent to that he had bradycardic episodes. After discussion he underwent permanent p acemaker placement. The chest x-ray after permanent pacemaker is not showing any complications and is showing good lead positioning. We will interrogate the device. Resume amiodarone 400 mg twice a day and metoprolol. After 10 days amiodarone should be decreased to 200 mg once a day. Once device interrogation has been done and no concerns are raised, he can be discharged back home. Follow-up with Dr. Hudson. Thank you for allowing me to participate in the care of your patient. Please feel free to contact me if you have any questions. Time Spent With Patient Time: Total time spent is greater than 50% in coordination of care (as documented) at patient's floor/unit and/or counseling patient: Progress Note: Quality Stroke Does the patient have a stroke diagnosis?: No Procedures Date of Service Date of Service: 12/16/21
--- NOTE | 2021-12-16 10:21 | HO.POSTANES ---
Post Anesthesia Evaluation Post Anesthesia Evaluation Vital Signs: Vital Signs Temp Pulse Resp BP Pulse Ox O2 Del Method 12/16/21 08:48 63 114/54 L 96 12/16/21 08:00 63 16 114/54 L 96 12/16/21 04:00 98.8 F 60 16 117/55 L 97 Room Air 12/15/21 23:51 98.0 F 68 16 116/56 L 97 Room Air Anesthesia: General LMA Mental Status: Awake Pain Control: Satisfactory Nausea/Vomiting: None Hydration: Adequate Anesthesia-Related Issues: No Anes. Related Issues
[2021-12-16] MEDS: Metoprolol Tartrate 25 MG TABLET PO (10:30)
[2021-12-16] MEDS: Amiodarone HCL 200 MG TABLET 400 MG PO (10:31)
[2021-12-16] MEDS: Tamsulosin HCL 0.4 MG CAPSULE PO (10:31)
[2021-12-16] MEDS: hydroCHLOROthiazide 25 MG TABLET PO (10:31)
[2021-12-16] MEDS: 0.9 % Sodium Chloride Flush 3 ML SYRINGE IVFLUSH (10:31)
[2021-12-16] MEDS: Cyanocobalamin (Vitamin B-12) 1,000 MCG TABLET 1000 MCG PO (10:31)
[2021-12-16] MEDS: Escitalopram Oxalate 10 MG TABLET PO (10:31)
--- NOTE | 2021-12-16 11:28 | MHC.CM.PN ---
Per MD, Patient will be medically cleared for dc to SNF/STR today. Patient has been accepted at and will dc to [facility] today @ 4PM, via [facility]. Patient and Daughter/Stormy at listed # are aware of and in agreement with the dc plan. Last IMM addressed on 12/14/21.
--- NOTE | 2021-12-16 11:31 | MHC.CM.PN ---
CORRECTION TO LAST CM NOTE: CM spoke with Daughter/Viviana (NOT SEPTEMBER) @ [phone], who is aware of and in agreement with the dc plan.
--- NOTE | 2021-12-16 13:31 | MHC.CM.PN ---
CM has informed Patient's Daughter/Viviana @ [phone] that there are Covid Patients in the SNF where patient will be going.
[2021-12-16 13:37] LABS: COVID-19 Test Negative (Negative)
--- NOTE | 2021-12-16 14:47 | PM.DS ---
DS: Providers Provider Date of Service: 12/16/21 Date of admission: 12/13/21 19:17 Primary care physician: Mikel Hong MD Consults: 12/13/21 19:17 Consult to Cardiology Routine Consulting Provider: Jaime Malik Reason for consultation: Afib; lu to tachy DS: Diagnosis Discharge Diagnosis (1) Tachy-lu syndrome: Status: Acute (2) PAF (paroxysmal atrial fibrillation): Status: Acute DS: Summary Hospital Course Hospital Course: from initial hpi: hief Complaint: Tachycardia 86-year-old male with past history of hypertension, hyperlipidemia nonrheumatic mitral regurgitation, paroxysmal AFib on Eliquis, history of bradycardia/Wenckebach heart block-off of beta-seb; presented to the hospital today with a chief complaint of tachycardia.? Patient initially went to the cardiology clinic for routine follow-up visit; noted to have AFib with rapid ventricular rate; subsequently patient was sent to the hospital for further evaluation.? Patient denies any symptoms-denies any chest pain palpitations lightheadedness dizziness, fever chills cough, GI symptoms.? Review of all other systems is negative except mentioned above ER course: Per ER team patient asymptomatic, exam benign; discussed with cardiology who suggested to have the patient on amiodarone 400 mg b.i.d. and metoprolol told him once b.i.d..? Patient on presentation to the ER noted to be in rapid AFib with heart rate in 130s.? received diltiazem IV x1.? Admitted to the hospital for further management hospital course: Patient was admitted for paroxysmal atrial fibrillation with rapid ventricular response complicated by tachycardia/bradycardia syndrome. Patient was started on amiodarone and metoprolol, he underwent pace maker placement, patient tolerated procedure well. On discharge he will continue amiodarone load 400 mg b.i.d. for 10 days then decrease to 200 mg daily maintenance, lopressor 25mg bid, and continue eliquis. He should follow up with Cardiology as outpatient. For his hypertension he will continue on hydrochlorothiazide. For his BPH he will continue on tamsulosin. Due to physical conditioning he will be discharged to half-way facility for short-term rehab, as expected core less than 30 days. Time Spent with Patient Time attestation: Total time spent providing and/or coordinating discharge services: Discharge coordination time: Greater than 30 minutes Quality: Safe Use of Opioids Does Pt have an Active Cancer Diagnosis on the Problem List?: No Quality: Stroke Does the patient have a stroke diagnosis?: No Physical Exam Vital Signs: Vital Signs: Last Vital Signs Temp 98.8 F 12/16/21 04:00 Pulse 63 12/16/21 08:48 Resp 16 12/16/21 08:00 BP 114/54 L 12/16/21 08:48 Pulse Ox 96 12/16/21 08:48 O2 Del Method 12/16/21 11:43 O2 Flow Rate 2 12/15/21 19:22 Oxygen Flow Rate 98 12/16/21 11:43 BMI result Body Mass Index 24.0 General: AO X 3, no acute distress Resp: CTA bilateral, no accessory muscles used CVS: S1,S2,RRR GI: soft, non tender, non distended Neuro: motor grossly intact, alert Psych: appropriate affect, appropriate insight DS: Data Data Completed and Pending Labs on day of discharge: Laboratory Results - last 24 hr 12/16/21 12/16/21 12/16/21 06:12 06:12 13:05 WBC 8.2 RBC 3.82 L Hgb 12.4 L Hct 36.9 L MCV 96.6 MCH 32.5 MCHC 33.6 RDW 12.8 Plt Count 209 MPV 9.9 Absolute Nucleated RBC 0.000 Nucleated RBC % (auto) 0.0 Sodium 137 Potassium 4.0 Chloride 102 Carbon Dioxide 25 Anion Gap 14 BUN 18 H Creatinine 1.05 Estim Creat Clear Calc 51.1 Estimated GFR > 60 Random Glucose 99 Calcium 8.3 L COVID-19 (JAMESON) Negative COVID-19 Clin Com See Note Discharge Plan Discharge Patient Disposition: Xfer SNF Discharge Diagnosis: tachy lu Referrals: [facility] [Outside] - 1 Week Mikel Hong MD [Primary Care Provider] - 1 Week Discharge Medications: New amiodarone 200 mg Tablet 400 mg PO BID Qty: 60 0RF Rx Instructions: reduce to 200mg daily after 10 days (12/26/21) metoprolol tartrate 25 mg Tablet 25 mg PO BID Qty: 0 0RF Protocol: Hold for SBP/HR < HOLD for SBP < : 90 HOLD for HR < : 60 Continued Eliquis 2.5 mg tablet 2.5 mg PO BID 90 Days Qty: 180 3RF Rx Instructions: Dose 2.5 mg twice a day. tamsulosin 0.4 mg capsule 0.4 mg PO DAILY Qty: 90 1RF hydrochlorothiazide 25 mg tablet 25 mg PO DAILY 30 Days Qty: 30 2RF citalopram [Celexa] 20 mg tablet 20 mg PO DAILY 90 Days Qty: 90 2RF diclofenac sodium [Voltaren Arthritis Pain] 1 % gel 4 g topical BID PRN (Reason: pain) cyanocobalamin (vitamin B-12) 1,000 mcg capsule 1,000 mcg PO DAILY Discharge Orders: Discharge Order (Routine); Ordered 12/16/21 Ordered By: Thompson Sloan Diet: Advance to usual diet Activity on Discharge: As tolerated Stand Alone Forms: Patient Portal Discharge page Care Plan Goals: recovery Health Concerns: tachy lu Plan of Treatment: 10 more days of 400mg bid then 200mg daily, lopressor 25mg bid, follow up with cardiology Assessment: see above
[2021-12-16 15:08] VITALS: BP 103/53; PULSE 68; RESP 18; TEMP 37.2; O2SAT 95
--- NOTE | 2021-12-16 18:12 | PC.NURSE ---
Called for warmm-handoff misti [facility] [place], no response @ 1700 and 18:11
== END 2021-12-16 18:13 | disposition skilled nursing facility (03) | DRG 244 ==
LOC: HO.ED 18:35 → HO.EDOVER 19:21 → HO.IMC 12-14 07:26
PROVIDERS: Internal Medicine Cardiovascular Disease; Student in an Organized Health Care Education/Training Program; Admitting Provider Hospitalist; Emergency Provider Internal Medicine; PCP Family Medicine; Visit Provider Internal Medicine
PROC: 0JH606Z Insertion of Pacemaker, Dual Chamber into Chest Subcutaneous Tissue and Fascia, Open Approach (ICD-10-PCS; principal; 2021-12-15 13:30)
DX: I48.0 Paroxysmal atrial fibrillation (principal); E78.5 Hyperlipidemia, unspecified; I47.1 Supraventricular tachycardia; I44.1 Atrioventricular block, second degree; N40.0 Benign prostatic hyperplasia without lower urinary tract symptoms; I10 Essential (primary) hypertension; I49.5 Sick sinus syndrome; I34.0 Nonrheumatic mitral (valve) insufficiency; Z20.822 Contact with and (suspected) exposure to COVID-19; Z96.653 Presence of artificial knee joint, bilateral; Z87.891 Personal history of nicotine dependence; Z79.01 Long term (current) use of anticoagulants; Z79.899 Other long term (current) drug therapy
CPT/HCPCS: 36415; 71045; 80048; 83735; 84484; 85025; 85027; 85610; 87635; 93005; 97116; 97162; 99212; 99285; C1785; C1892; C1898; J2370; J2405; J3010; J3370; Q9965; Q9967

== ENCOUNTER → 2022-01-04 13:41 | Outpatient (BNVA) | payer MEDICARE, SELFPAY | PROVIDERS: PCP Family Medicine; Referring Provider Family Medicine; Visit Provider Nurse Practitioner Family | DX: I49.5 Sick sinus syndrome (principal); I48.0 Paroxysmal atrial fibrillation; I44.30 Unspecified atrioventricular block; I34.0 Nonrheumatic mitral (valve) insufficiency; Z79.01 Long term (current) use of anticoagulants; Z79.899 Other long term (current) drug therapy; Z95.0 Presence of cardiac pacemaker | CPT/HCPCS: 93005; 99212 ==

== ENCOUNTER → 2022-01-09 15:10 | Outpatient (BNVA) | payer MEDICARE, SELFPAY | PROVIDERS: PCP Family Medicine; Visit Provider Anesthesiology | DX: M16.11 Unilateral primary osteoarthritis, right hip (principal) | CPT/HCPCS: 99212 ==

== ENCOUNTER 2022-01-18 10:15 | Outpatient (REF) | payer MEDICARE, SELFPAY ==
[2022-01-18 11:09] LABS: MANUAL DIFF FLAG NO
[2022-01-18 11:26] LABS: Basophils Absolute Auto 0.1 X10*3/uL (0.0-0.2); Basophils Percent Auto 1.1 % (0-2); Eosinophils Absolute Auto 0.5 X10*3/uL (0.0-0.4); Eosinophils Percent Auto 6.4 % (0-4); Hematocrit 38.8 % (42.0-52.0); Hemoglobin 12.8 g/dl (14.0-18.0); Imm Gran Abs Auto 0.03 X10*3/uL (0.00-0.03); Imm Gran Pct Auto 0.4 % (0.0-0.4); Lymphocytes Absolute Auto 0.7 X10*3/uL (1.2-4.9); Lymphocytes Percent Auto 8.3 % (20-40); Mean Corpuscular Hemoglobin 32.3 pg (27.0-33.0); Mean Platelet Volume 9.8 fL (9.4-12.4); Monocytes Percent Auto 12.7 % (2-11); Neutrophils Absolute Auto 5.6 x10*3/uL (2.0-8.3); Neutrophils Percent Auto 71.1 % (45-73); Platelet Count 254 X10*3/uL (160-400); Red Blood Count 3.96 X10*6/uL (4.60-5.80); Red Cell Distribution Width 13.2 % (11.0-16.0); White Blood Count 7.9 X10*3/uL (4.8-10.8)
[2022-01-18 12:02] LABS: Alanine Aminotransferase 18 U/L (0-40); Alkaline Phosphatase 72 U/L (39-117); Anion Gap 15 (12-20); Aspartate Amino Transferase 19 U/L (5-37); Bilirubin Total 0.9 mg/dL (0.0-1.0); Blood Urea Nitrogen 24 mg/dL (9-16); Calcium 8.6 mg/dL (8.4-10.2); Carbon Dioxide 25 mmol/L (22-29); Chloride 103 mmol/L (96-108); Cholesterol 182 mg/dL; Estimated Glomerular Filt Rate 58; Glucose Fasting 94 mg/dL (60-99); HDL Cholesterol 50 mg/dL; LDL Cholesterol Calculated 117 mg/dl; Potassium 4.4 mmol/L (3.3-5.1); Sodium 139 mmol/L (135-145); Total Protein 6.4 g/dL (6.5-8.0); Triglycerides 77 mg/dL
[2022-01-18 12:13] LABS: TSH reflex Free T4 2.45 uIU/mL (0.32-4.0)
== END 2022-01-18 10:16 | disposition home or self-care (01) ==
LOC: HO.WFDLDS 10:15
PROVIDERS: Visit Provider Family Medicine
DX: Z00.00 Encounter for general adult medical examination without abnormal findings (principal); M16.11 Unilateral primary osteoarthritis, right hip
CPT/HCPCS: 36415; 80053; 80061; 84443; 85025

== ENCOUNTER → 2022-02-07 14:29 | Outpatient (BNVA) | payer MEDICARE, SELFPAY | PROVIDERS: PCP Family Medicine; Referring Provider Family Medicine; Visit Provider Nurse Practitioner Family | DX: Z45.018 Encounter for adjustment and management of other part of cardiac pacemaker (principal); I49.5 Sick sinus syndrome; I48.0 Paroxysmal atrial fibrillation; I34.0 Nonrheumatic mitral (valve) insufficiency | CPT/HCPCS: 93280; 99212 ==

== ENCOUNTER → 2022-05-16 15:06 | Outpatient (BNVA) | payer MEDICARE, SELFPAY | PROVIDERS: PCP Family Medicine; Referring Provider Family Medicine; Visit Provider Internal Medicine | DX: I48.0 Paroxysmal atrial fibrillation (principal); I49.5 Sick sinus syndrome; I44.0 Atrioventricular block, first degree; I34.0 Nonrheumatic mitral (valve) insufficiency; E78.5 Hyperlipidemia, unspecified; Z95.0 Presence of cardiac pacemaker; Z91.81 History of falling | CPT/HCPCS: 93005; 99212 ==

== ENCOUNTER → 2022-12-15 23:59 | Outpatient (BNV) | payer MEDICARE, SELFPAY ==
--- NOTE | 2022-12-23 12:39 | A.OFFVIS_ITS ---
Intake Intake Visit Reasons: Remote device check- [employer] Allergies No Known Allergies Allergy (Verified 05/16/22 15:29) [facility] Medical History Essential hypertension First degree heart block Hyperlipidemia Non-rheumatic mitral regurgitation Pacemaker PAF (paroxysmal atrial fibrillation) Surgical History History of total knee replacement Family History Father No problems noted. Mother No problems noted. Social History Household Members: Caregiver and Other Housing: Assisted Living Facility Do you presently have visiting nurse or other home services: Yes Alcohol intake: current Alcohol intake frequency: a few times a month Patient Tobacco Use Status: Former Tobacco user Tobacco use type: Cigarette e-Cigarette/Vaping Use: Never Used Second Hand Smoke Exposure: No service: Yes Current occupational status: retired Current occupation: rt hand /retired Cognitive needs: Yes (walker/cane) Hearing needs: No Vision needs: Yes (glasses) Office Procedures Cardiac Device Check Cardiac Device Check Details: Date of service- 12/15/2022 ; Battery life >12 years; normal lead parameters; AP 20%; [employer] 78%; atrial tach episodes, controlled rate, burden 3.3%. Overall normal device function. [id number] Cardiac Device Interrogation, pacemaker Procedure code (CPT) selection complete Assessment & Plan Assessment & Plan (1) Tachy-lu syndrome: Code(s): I49.5 - Sick sinus syndrome Coding Level of Care Code Procedure Only Diagnoses Tachy-lu syndrome I49.5 CPT Codes Cardiac Device Check - Cardiac Device 12: [id number] Cardiac Device Interrogation, pacemaker ([id number])
== END ==
PROVIDERS: PCP Family Medicine; Visit Provider Internal Medicine
DX: I49.5 Sick sinus syndrome (principal); Z95.0 Presence of cardiac pacemaker
CPT/HCPCS: 93294

== ENCOUNTER 2023-03-13 15:02 | Outpatient (AMB) | payer MEDICARE, SELFPAY ==
--- NOTE | 2023-03-13 14:37 | A.OFFVIS_ITS ---
Intake Intake Visit Reasons: follow up Allergies No Known Allergies Allergy (Verified 03/13/23 14:37) Medication List - Last Reconciled 03/13/23 by Jairon Hudson MD amiodarone 200 mg PO DAILY 30 days apixaban (Eliquis) 2.5 mg PO BID citalopram 20 mg PO DAILY diclofenac sodium 1% (Voltaren Arthritis Pain) 4 grams topical BID PRN finasteride 5 mg PO DAILY miscellaneous medical supply Wheelchair. Daily As directed, 999 days tamsulosin 0.4 mg PO DAILY HPI HPI Comments History of Present Illness Details This is a FaceTime visit as they are not able to travel. Patient has apparently got very weak and very forgetful, deconditioned extra. Hence not able to come in person. Daughter is also accompanying him for the for the appointment. To recall, has history of paroxysmal atrial fibrillation and tachybrady syndrome. He underwent pacemaker placement not too long ago. No specific cardiac type symptoms but in general, getting more and more frail. Per daughter, vitals today were 113/60 mm Hg and heart rate 72/Min. Of note, it is a daughter who is mainly communicating in this encounter. Patient is barely seeing anything. When I interact with him directly, he states he is doing okay. However, looks sleepy. [facility] Medical History Essential hypertension First degree heart block Hyperlipidemia Non-rheumatic mitral regurgitation Pacemaker PAF (paroxysmal atrial fibrillation) Surgical History History of total knee replacement Family History Father No problems noted. Mother No problems noted. Social History Household Members: Caregiver and Other Housing: Assisted Living Facility Do you presently have visiting nurse or other home services: Yes Alcohol intake: current Alcohol intake frequency: a few times a month Patient Tobacco Use Status: Former Tobacco user Tobacco use type: Cigarette e-Cigarette/Vaping Use: Never Used Second Hand Smoke Exposure: No service: Yes Current occupational status: retired Current occupation: rt hand /retired Cognitive needs: Yes (walker/cane) Hearing needs: No Vision needs: Yes (glasses) Review of Systems Const All systems reviewed & are unremarkable except as noted in HPI and below Reports as per HPI, Reports no additional complaints, Reports lethargy and Reports weakness Eyes Reports as per HPI and Denies no additional complaints ENT Denies no additional complaints and Reports as per HPI Card Reports as per HPI, Reports no additional complaints, Denies acrocyanosis, Denies chest pain, Denies leg edema, Denies lightheadedness, Denies palpitations and Denies dyspnea Resp Reports as per HPI, Denies no additional complaints and Denies dyspnea GI Reports as per HPI and Denies no additional complaints Reports no additional complaints and Reports as per HPI Musc Reports no additional complaints and Reports as per HPI Skin/Breast Reports system reviewed and no additional complaints, except as documented Neuro Reports no additional complaints, Reports as per HPI and Reports weakness Psych Reports no additional complaints and Reports as per HPI Endo Reports no additional complaints, Reports as per HPI and Denies palpitations Grover/Lymph Reports no additional complaints and Reports as per HPI Aller/Immun Reports no additional complaints and Reports as per HPI Assessment & Plan Assessment & Plan (1) PAF (paroxysmal atrial fibrillation): Code(s): I48.0 - Paroxysmal atrial fibrillation Plan: Based on the recent remote transmission, atrial fibrillation burden is 13.7%. Prior to that, he was actually in persistent atrial fibrillation. May remain on amiodarone. We will ask for an EKG to be performed in the long term. Also remains on anticoagulation. Will need to get last lab from the long term. (2) Heart block atrioventricular: Code(s): I44.30 - Unspecified atrioventricular block Plan: Status post permanent pacemaker placement. Being monitored remotely. (3) Frailty: Code(s): R54 - Age-related physical debility Plan: Per daughter, minimal ambulation and will not be able to come to clinic. Hence will have to do appointments by [facility] and follow pacemaker remotely. Plan Total time spent including review of data, counseling, documentation, coordination of care-37 minutes. Telehealth Telehealth Location of provider rendering services: practice address Location of patient: address on file Patient Identification confirmed using: Name, : Yes Telehealth method: video Patient verbally consented to treatment: Yes Patient verbally consented to billing insurance company: Yes Patient informed of any privacy concerns related to visit: Yes Minutes spent on Phone/Video with Pt.: 20 Coding Level of Care Code Tele Est Pt Level 4 (95192) Diagnoses PAF (paroxysmal atrial fibrillation) I48.0 Heart block atrioventricular I44.30 Frailty R54
== END 2023-03-13 15:22 | disposition home or self-care (01) ==
LOC: HO.HCS 15:02
PROVIDERS: PCP Family Medicine; Visit Provider Internal Medicine
DX: I48.0 Paroxysmal atrial fibrillation (principal); I44.30 Unspecified atrioventricular block; R54 Age-related physical debility
CPT/HCPCS: 99214

== ENCOUNTER → 2023-03-13 15:02 | Outpatient (BNVA) | payer MEDICARE, SELFPAY | PROVIDERS: PCP Family Medicine; Visit Provider Internal Medicine ==

== ENCOUNTER → 2023-03-16 23:59 | Outpatient (BNV) | payer MEDICARE, SELFPAY ==
--- NOTE | 2023-03-18 13:39 | MHC.OFFVIS ---
Intake Intake Visit Reasons: Remote Device Check- [employer] Allergies No Known Allergies Allergy (Verified 03/13/23 14:37) [facility] Medical History Essential hypertension First degree heart block Hyperlipidemia Non-rheumatic mitral regurgitation Pacemaker PAF (paroxysmal atrial fibrillation) Surgical History History of total knee replacement Family History Father No problems noted. Mother No problems noted. Social History Household Members: Caregiver and Other Housing: Assisted Living Facility Do you presently have visiting nurse or other home services: Yes Alcohol intake: current Alcohol intake frequency: a few times a month Patient Tobacco Use Status: Former Tobacco user Tobacco use type: Cigarette e-Cigarette/Vaping Use: Never Used Second Hand Smoke Exposure: No service: Yes Current occupational status: retired Current occupation: rt hand /retired Cognitive needs: Yes (walker/cane) Hearing needs: No Vision needs: Yes (glasses) Office Procedures Cardiac Device Check Cardiac Device Check Details: Date of service- 03/16/2023 ; Battery life 12 years; normal lead parameters; AP 24%; [employer]ARD/[employer] 87%; AT/AF 2.1%. Overall normal device function. [id number] Cardiac Device Interrogation, pacemaker Procedure code (CPT) selection complete Assessment & Plan Assessment & Plan (1) Tachy-lu syndrome: Code(s): I49.5 - Sick sinus syndrome Coding Level of Care Code Procedure Only Diagnoses Tachy-lu syndrome I49.5 CPT Codes Cardiac Device Check - Cardiac Device 12: [id number] Cardiac Device Interrogation, pacemaker ([id number])
== END ==
PROVIDERS: PCP Family Medicine; Visit Provider Internal Medicine
DX: I49.5 Sick sinus syndrome (principal); Z95.0 Presence of cardiac pacemaker
CPT/HCPCS: 93294